=== PATIENT | female | born 1975 | race Caucasian/White ===

== ENCOUNTER 2016-12-16 20:49 | Inpatient (IN) | payer OTHER ==
[2016-12-16 21:24] LABS: MANUAL DIFF NEEDED? NO
[2016-12-16 21:28] LABS: BASO% 0.2 % (0.0-0.8); EOS# 0.21 X1000 (0.0-0.7); EOS% 2.6 % (0.0-10.0); HEMATOCRIT 34.9 % (37.0-47.0); HEMOGLOBIN 11.9 g/dL (12.0-16.0); IMM GRAN# 0.02 X1000 (0.0-0.04); IMM GRAN% 0.2 % (0.0-0.5); LYMPH% 26.7 % (20.5-51.1); MCH 29.7 PG (27-31); MCHC 34.1 g/dL (33-37); MONO# 0.99 X1000 (0.11-0.59); MPV 8.6 FL (7.4-10.4); NEUT% 58.3 % (42.2-75.2); PLT 290 X1000 (130-400); RBC 4.01 XMIL (4.2-5.4)
--- NOTE | 2016-12-16 21:40 | ED EKG INTERP ---
EKG Interpretation - EKG Time of EKG reading by physician:: 21:23 EKG Read and Signed by:: Smooth Del Real EKG Interpretation (*Must complete 3 of following elements*): Normal Rate: 92 Rhythm: NSR Comments: Normal ECG Attestation - Scribe Verification/Attestation Scribe:: Veena Marin Acting as Scribe for:: Smooth Del Real Scribe documention review:: This chart was documented by a scribe and accurately reflects the service the provider performed and the decisions made by the provider.
[2016-12-16 21:49] LABS: AGAP 12; ALBUMIN 3.2 g/dL (3.5-5.0); ALKALINE PHOSPHATASE 197 U/L (32-104); BUN 16 mg/dL (8-22); CALCIUM 8.7 mg/dL (8.8-10.2); CHLORIDE 101 mmol/L (98-107); COSMO 275; GOT 23 U/L (10-30); GPT 23 U/L (10-36); POTASSIUM 3.7 mmol/L (3.5-5.1); SODIUM 137 mmol/L (136-145); TCO2 24 mmol/L (25-35); TOTAL BILIRUBIN 0.14 mg/dL (0.20-1.00); TOTAL PROTEIN 6.9 g/dL (6.3-8.3)
[2016-12-16] MEDS ORDERED: VANCOMYCIN 1 GM/NS 250 ML IV ONE (22:00)
--- NOTE | 2016-12-16 22:05 | PROVIDER DOCUMENTATION ---
Addendum entered and electronically signed by Veena Marin Scribe 12/17/16 02:53: Additional Progress - ADDITIONAL CT/MRI CT Study #3: Thorax Impression: Abnormal CT Results: Fluid effusion Original Note: HPI-Respiratory General - General Chief Complaint: Shortness of Breath Stated Complaint: cough, pneumonia Time Seen by Provider: 12/16/16 20:50 Source: patient, EMS Allergies/Adverse Reactions: Patient Allergies Allergy/AdvReac Type Severity Reaction Status Date / Time acetaminophen Allergy ITCHING Verified 12/16/16 21:31 [From Darvocet-N 100] morphine Allergy RASH Verified 12/16/16 21:31 propoxyphene napsylate * Allergy ITCHING Verified 12/16/16 21:31 [From Darvocet-N 100] Cephalosporins AdvReac HIVES Verified 12/16/16 21:31 nalbuphine HCl * AdvReac ITCHING Verified 12/16/16 21:31 [From Nubain] Home Medications: Home Medication List Medication Instructions Recorded Confirmed Last Taken Type Sertraline HCl [Zoloft] 200 mg PO BID 01/10/14 12/16/16 12/16/16 21:00 History Oxcarbazepine [Trileptal] 300 mg PO TID 04/29/16 12/16/16 12/16/16 20:00 History Oxybutynin [Ditropan] 5 mg PO TID 04/29/16 12/16/16 09/09/16 History Phenytoin [Dilantin] 100 mg PO TID 04/29/16 12/16/16 12/16/16 20:00 History Acetaminophen [Tylenol] 650 mg PO Q4H PRN PRN #0 tablet 09/19/16 Unknown Rx Alprazolam [Xanax] 0.25 mg PO TID #90 tablet 09/19/16 12/16/16 12/16/16 20:00 Rx Baclofen [Lioresal] 20 mg PO TID #90 tablet 09/19/16 12/16/16 12/16/16 20:00 Rx Guar Gum [Benefiber Packet] 1 each PO DAILY #0 packet 09/19/16 12/16/16 07:00 Rx Hydrocodone/APAP 5 mg/325 mg 1 each PO TID #90 tablet 09/19/16 12/16/16 20:00 Rx [[place]-5] Lactobacillus Rhamnosus GG 1 each PO BID #0 capsule 09/19/16 12/16/16 12/16/16 20:00 Rx [Culturelle] Nicotine Patch [Nicoderm Patch] 7 mg TD DAILY #0 patch.td24 09/19/16 12/16/16 Unknown Rx Acidophilus/Bulgaricus [Floranex 1 tab PO BID 12/16/16 12/16/16 12/16/16 20:00 History Tablet Chewable] Arginine/Glutamine/Calcium Hmb 1 each PO DIRECTED 12/16/16 12/16/16 Unknown History [Wilbur Packet] Aspirin 81 mg PO DAILY 12/16/16 12/16/16 12/16/16 07:00 History Docusate Sodium [Colace] 100 mg PO BID 12/16/16 12/16/16 12/16/16 20:00 History Pantoprazole Sodium [Protonix] 40 mg PO DAILY 12/16/16 12/16/16 12/16/16 07:00 History Polyethylene Glycol 3350 17 gm PO QHS 12/16/16 12/16/16 12/16/16 20:00 History Protein Supplement [Promod] 30 ml PO BID 12/16/16 12/16/16 12/16/16 20:00 History Trazodone [Desyrel] 50 mg PO QHS 12/16/16 12/16/16 12/16/16 20:00 History - History of Present Illness-Resp Nature of Presenting Problem: This pt, who has a hx of spina bifida and lives in a senior living, presents today c complaints of failed outpt tx of pneumonia. She has been taking levaquin daily for the past week for pneumonia. This morning she had a CXR which showed worsening R lower lobe pneumonia and they sent her here for inpatient tx. she is a pt of Dr. Maurice. At present she is no apparent distress but states that she feels unwell. Quality of Pain: reports: aching Severity in ED: reports: mild Onset/Duration: reports: 1 week ago Timing: reports: still present Cough Quality/Degree: reports: mild, dry cough Modifying Factors: improves with: coughing Associated Symptoms: reports: cough, fever/chills Similar Symptoms Previously?: Yes Recently seen or treated by another doctor?: Yes Review of Systems - Adult - REVIEW OF SYSTEMS - ADULT Constitutional: reports: silvio. denies: chills, fever Eyes: reports: no symptoms reported. denies: discharge, dry eyes Ears, Nose, Mouth & Throat: reports: no symptoms reported. denies: ear discharge, ear pain Cardiovascular: reports: no symptoms reported. denies: chest pain, edema Respiratory: reports: see HPI, cough. denies: chronic cough, hemoptysis, pleurisy Gastrointestinal: reports: no symptoms reported. denies: abdominal pain, hematemesis Genitourinary: reports: no symptoms reported. denies: discharge, frequency Musculoskeletal: reports: see HPI. denies: bone pain, back pain Integumentary: reports: no symptoms reported. denies: hives, hair loss Neurological: reports: no symptoms reported. denies: ataxia, dizziness/vertigo Psychiatric: reports: no symptoms reported. denies: anxiety, anti-depressant use Endocrine: reports: no symptoms reported Hematologic/Lymphatic: reports: no symptoms reported Allergic/Immunologic: reports: no symptoms reported All Other Systems: Reviewed and Negative Past History - Adult - PAST MEDICAL HISTORY-ADULT Review of Records: reports: Old Records Reviewed, Nursing Assessment Review, Medications Reviewed, Social history reviewed & non-contributory. Major Childhood Illnesses: reports: denies history Cardiovascular: reports: denies history Respiratory: reports: denies history Gastrointestinal: reports: denies history Obstetrical/Gynecological: reports: denies history Genitourinary: reports: chronic UTI's Musculoskeletal: reports: denies history Neurological: reports: other (spina bifida; hydrocephalus) Endocrine/Immune: reports: denies history Other Conditions: reports: denies history - PRIOR SURGERIES/PROCEDURES Surgical/Procedure History: reports: none - IMMUNIZATION STATUS Childhood Immunizations: See Nurse Assessment Flu Vaccine: See Nurse Assessment - FAMILY HISTORY Family History: reviewed, not pertinent Physical Exam-General - PHYSICAL EXAM-ADULT Initial Vital Signs Reviewed: Yes - CONSTITUTIONAL General Appearance: appears well, alert, no apparent distress - EYES Eyes: PERRL/EOMI, pink conjunctivae - HEAD, EARS, NOSE, MOUTH & THROAT HENMT: normocephalic/atraumatic, moist mucous membranes - NECK Neck: non-tender, full range of motion - RESPIRATORY Respiratory: chest non-tender, no pleuratic chest pain, no respiratory distress , no accessory muscle use, crackles (RLL). negative: respiratory distress, decreased breath sounds, accessory muscle use, rales, rhonchi, stridor, wheezing - CARDIOVASCULAR Cardiovascular: normal peripheral pulses, regular rate, rhythm - GASTROINTESTINAL (ABDOMEN) Abdominal Exam: normal bowel sounds, non tender - MUSCULOSKELETAL Back Exam: other (severe deformity from spina bifida) Extremity: normal range of motion - SKIN Integumentary: normal color, normal turgor, warm/dry. negative: cyanosis, pallor - NEUROLOGIC Neurologic: grossly normal, no motor/sensory deficits - PSYCHIATRIC Psych/Mental Status: normal mood/affect, normal thought content, normal thought process, oriented x 3 Progress - PLAN OF CARE/RESULTS Progress/Plan/Lab Results: Laboratory Tests 12/16/16 12/16/16 12/16/16 21:11 21:11 21:11 WBC 8.23 RBC 4.01 L Hgb 11.9 L Hct 34.9 L MCV 87.0 MCH 29.7 MCHC 34.1 RDW Std Deviation 12.9 Plt Count 290 MPV 8.6 Immature Gran % (Auto) 0.2 Neut % (Auto) 58.3 Lymph % (Auto) 26.7 [place] % (Auto) 12.0 H Eos % (Auto) 2.6 Baso % (Auto) 0.2 Immature Gran # (Auto) 0.02 Neut # (Auto) 4.79 Lymph # (Auto) 2.20 [place] # (Auto) 0.99 H Eos # (Auto) 0.21 Baso # (Auto) 0.02 Sodium 137 Potassium 3.7 Chloride 101 Carbon Dioxide 24 L Anion Gap 12 BUN 16 Creatinine 0.3 L Estimated GFR/1.73 m2 > 60 BUN/Creatinine Ratio 53 Glucose 101 Calculated Osmolality 275 Calcium 8.7 L Total Bilirubin 0.14 L AST 23 ALT 23 Alkaline Phosphatase 197 H Total Protein 6.9 Albumin 3.2 L Globulin 3.7 Albumin/Globulin Ratio 0.9 Plasma Lactate 1.4 Orders Category Date Time Status Saline Loc NOW Care 12/16/16 20:50 Active CHEST-PORTABLE [RAD] Stat Exams 12/16/16 20:50 Taken BLOOD CULTURE [BLDCUL] Stat Lab 12/16/16 21:13 Results CBC WITH ELECTRONIC DIFF [HEME] Stat Lab 12/16/16 21:11 Completed COMPREHENSIVE METABOLIC PANEL [CHEM] Stat Lab 12/16/16 21:11 Completed LACTATE, PLASMA [CHEM] Stat Lab 12/16/16 21:11 Completed Vancomycin 1 gm/Ns 250 ml Med 12/16/16 22:00 Active IV NOW EKG [EKG] Stat Ther 12/16/16 20:50 Ordered Vital Signs Temp Pulse Resp BP Pulse Ox 12/16/16 20:59 98.2 F 88 19 115/89 97 acetaminophen [From Darvocet-N 100] Allergy (Verified 12/16/16 21:31) ITCHING morphine Allergy (Verified 12/16/16 21:31) RASH propoxyphene napsylate * [From Darvocet-N 100] Allergy (Verified 12/16/16 21:31) ITCHING Cephalosporins Adverse Reaction (Verified 12/16/16 21:31) HIVES nalbuphine HCl * [From Nubain] Adverse Reaction (Verified 12/16/16 21:31) ITCHING Sertraline HCl [Zoloft] 200 mg PO BID 01/10/14 Oxcarbazepine [Trileptal] 300 mg PO TID 04/29/16 Oxybutynin [Ditropan] 5 mg PO TID 04/29/16 Phenytoin [Dilantin] 100 mg PO TID 04/29/16 Acetaminophen [Tylenol] 650 mg PO Q4H PRN PRN #0 tablet 09/19/16 Alprazolam [Xanax] 0.25 mg PO TID #90 tablet 09/19/16 Baclofen [Lioresal] 20 mg PO TID #90 tablet 09/19/16 Guar Gum [Benefiber Packet] 1 each PO DAILY #0 packet 09/19/16 Hydrocodone/APAP 5 mg/325 mg [[place]-5] 1 each PO TID #90 tablet 09/19/16 Lactobacillus Rhamnosus GG [Culturelle] 1 each PO BID #0 capsule 09/19/16 Nicotine Patch [Nicoderm Patch] 7 mg TD DAILY #0 patch.td24 09/19/16 Acidophilus/Bulgaricus [Floranex Tablet Chewable] 1 tab PO BID 12/16/16 Arginine/Glutamine/Calcium Hmb [Wilbur Packet] 1 each PO DIRECTED 12/16/16 Aspirin 81 mg PO DAILY 12/16/16 Docusate Sodium [Colace] 100 mg PO BID 12/16/16 Pantoprazole Sodium [Protonix] 40 mg PO DAILY 12/16/16 Polyethylene Glycol 3350 17 gm PO QHS 12/16/16 Protein Supplement [Promod] 30 ml PO BID 12/16/16 Trazodone [Desyrel] 50 mg PO QHS 12/16/16 Laboratory 12/16/16 12/16/16 12/16/16 21:11 21:11 21:11 WBC 8.23 RBC 4.01 L Hgb 11.9 L Hct 34.9 L MCV 87.0 MCH 29.7 MCHC 34.1 RDW Std Deviation 12.9 Plt Count 290 MPV 8.6 Immature Gran % (Auto) 0.2 Neut % (Auto) 58.3 Lymph % (Auto) 26.7 [place] % (Auto) 12.0 H Eos % (Auto) 2.6 Baso % (Auto) 0.2 Immature Gran # (Auto) 0.02 Neut # (Auto) 4.79 Lymph # (Auto) 2.20 [place] # (Auto) 0.99 H Eos # (Auto) 0.21 Baso # (Auto) 0.02 Sodium 137 Potassium 3.7 Chloride 101 Carbon Dioxide 24 L Anion Gap 12 BUN 16 Creatinine 0.3 L Estimated GFR/1.73 m2 > 60 BUN/Creatinine Ratio 53 Glucose 101 Calculated Osmolality 275 Calcium 8.7 L Total Bilirubin 0.14 L AST 23 ALT 23 Alkaline Phosphatase 197 H Total Protein 6.9 Albumin 3.2 L Globulin 3.7 Albumin/Globulin Ratio 0.9 Plasma Lactate 1.4 - XRAY 1 XRAY Study: Chest XRAY Interpretation: RLL pneumonia vs effusion (myself and dr. diaz) - CONSULTS/PCP/HOSPITALIST Notification #1 *Consult/PCP/Hospitalist*: Dr. Diaz Time Discussed: 22:20 Consult Disposition: Admit Departure - Departure Time of Disposition Order: 22:05 DIAGNOSIS: Failure of outpatient treatment Pneumonia Qualifiers: Pneumonia type: due to unspecified organism Laterality: right Lung location: lower lobe of lung Qualified Code(s): J18.1 - Lobar pneumonia, unspecified organism Disposition: ADMITTED INPATIENT 09 Certified Medical Emergency: Emergent Condition: Stable Referrals: Travis Truong MD [Primary Care Provider] - Attestation - Physician/ L[place]ET[place] Attestation Patient care was provided by Advanced Practice Provider:: Yes Advanced Practice Provider:: Jigar Licea Advanced Practice Provider documentation review:: The Mid-level provider documentation, treatment plan and medical decision making was reviewed by the physician who agrees with all treatment and medical decision making by the MLP. The physician spent face to face time with patient:: Yes
[2016-12-16] MEDS ORDERED: NORCO-7.5 PO ONE (23:46)
[2016-12-16] MEDS ORDERED: ZOFRAN ODT PO ONE (23:46)
[2016-12-17] MEDS ORDERED: DILAUDID IV ONE (00:09)
[2016-12-17] MEDS: ZOSYN 3.375 GM/NS 50 ML IV SCH ×4 (02:15→17:10)
[2016-12-17 03:03] LABS: INR 1.01; PROTIME 10.7 Seconds (9.2-11.7)
[2016-12-17] MEDS ORDERED: NS 1,000 ML IV ONE (03:54)
[2016-12-17] MEDS ORDERED: DUONEB (A & A) INH SCH (03:54)
[2016-12-17] MEDS ORDERED: TYLENOL PO PRN (03:54)
[2016-12-17] MEDS ORDERED: NORCO-5 PO PRN (03:54)
[2016-12-17] MEDS ORDERED: PATIENT'S OWN MED PO SCH ×2 (03:54→09:00)
[2016-12-17] MEDS ORDERED: VANCOMYCIN IV PER PHARMACY MISC SCH (03:54)
[2016-12-17] MEDS ORDERED: DUONEB (A & A) INH PRN (04:09)
[2016-12-17] MEDS: TESSALON PO PRN (04:31)
[2016-12-17] MEDS ORDERED: VANCOMYCIN 500 MG/NS 100 ML IV ONE (04:45)
[2016-12-17] MEDS ORDERED: LIORESAL PO SCH (05:00)
[2016-12-17] MEDS ORDERED: DILANTIN PO SCH (05:00)
[2016-12-17] MEDS ORDERED: DITROPAN PO SCH (05:00)
[2016-12-17] MEDS ORDERED: TRILEPTAL PO SCH ×2 (05:00→09:00)
--- NOTE | 2016-12-17 05:17 | EKG Report ---
Test Performed on : 12/16/2016 9:23:14 PM Test Reason : SOB Blood Pressure : / mmHG Vent. Rate : 092 BPM Atrial Rate : 092 BPM P-R Int : 118 ms QRS Dur : 088 ms QT Int : 362 ms P-R-T Axes : 014 026 017 degrees QTc Int : 447 ms Normal sinus rhythm. Normal ECG When compared with ECG of 10-SEP-2016 16:22, ST no longer depressed in Anterior leads Nonspecific T wave abnormality, improved in Inferior leads T wave inversion no longer evident in Anterolateral leads Unconfirmed Result
--- NOTE | 2016-12-17 06:23 | Diag Imaging Result Document ---
PROCEDURE NAME: CT THORAX W/CONTRAST - 12/17/2016 CT CHEST WITH INTRAVENOUS CONTRAST: TECHNIQUE: Dose-reduction protocol. FINDINGS: There is [id number] right-sided pleural effusion measuring 7 cm posteriorly and inferiorly in the midline. Mild enhancement or thickening to the inferior pleural surface on the right. No left-sided effusion. No thoracic aortic aneurysm or dissection. No cardiomegaly. No enlarged mediastinal or hilar lymph nodes. There is a calcified left hilar lymph node with a calcified left lower lobe granuloma. Atelectasis is found in the right middle and lower lobes. There may be small underlying infiltrate in the right lower lobe. There is a catheter on the right which may represent a ventriculoperitoneal shunt. The patient has scoliosis and there are rods in the thoracic and lumbar spine. Prominent stool in the colon on the limited images of the upper abdomen. The gallbladder has been removed. IMPRESSION: 1. [id number] right pleural effusion. 2. Right middle and lower lobe atelectasis. 3. Constipation. 4. Cholecystectomy. A preliminary report was given at 3:01 a.m.
[2016-12-17 07:28] LABS: MANUAL DIFF NEEDED? NO
[2016-12-17 07:44] LABS: BASO% 0.3 % (0.0-0.8); EOS# 0.19 X1000 (0.0-0.7); EOS% 2.7 % (0.0-10.0); HEMATOCRIT 33.9 % (37.0-47.0); HEMOGLOBIN 11.4 g/dL (12.0-16.0); LYMPH# 1.55 X1000 (1.2-3.4); LYMPH% 22.3 % (20.5-51.1); MCH 29.8 PG (27-31); MCHC 33.6 g/dL (33-37); MCV 88.5 FL (81-99); MONO# 0.97 X1000 (0.11-0.59); MONO% 13.9 % (1.7-9.3); MPV 8.6 FL (7.4-10.4); NEUT% 60.8 % (42.2-75.2); PLT 254 X1000 (130-400); RBC 3.83 XMIL (4.2-5.4)
[2016-12-17 08:08] LABS: AGAP 11; BUN 11 mg/dL (8-22); CALCIUM 8.7 mg/dL (8.8-10.2); CHLORIDE 101 mmol/L (98-107); COSMO 274; POTASSIUM 4.6 mmol/L (3.5-5.1); SODIUM 138 mmol/L (136-145); TCO2 26 mmol/L (25-35)
--- NOTE | 2016-12-17 08:12 | Diag Imaging Result Document ---
PROCEDURE NAME: CHEST-PORTABLE - 12/16/2016 PORTABLE CHEST X-RAY, 12/16/20160: COMPARISON: 09/10/2016. FINDINGS: Stable extensive fusion rods. Stable catheter tubing along the body wall. Lung volumes are improved but still critically low. There is a small to moderate right pleural effusion. No new infiltrates. IMPRESSION: Slightly greater lung volumes but otherwise no change from prior.
--- NOTE | 2016-12-17 08:44 | CONSULTATION ---
DATE OF CONSULTATION: 12/17/2016 CHIEF COMPLAINT: Shortness of breath. HISTORY OF PRESENT ILLNESS: This is a 41-year-old female with a past medical history of spina bifida, recurrent UTIs, tobacco abuse, and seizure disorder that presented to the hospital with complaints of shortness of breath. Apparently, the patient was recently treated with Levaquin for community-acquired pneumonia and has not had an improvement in symptoms. Diagnostics in the emergency room reveal a moderate to large right pleural effusion and right middle and lower lobe atelectasis. The patient denies any chest pain, abdominal pain, nausea, vomiting, or diarrhea. She has been admitted to the floor for further evaluation, management, and treatment. REVIEW OF SYSTEMS: A 10 point review of systems was conducted. Pertinents are in the HPI, otherwise noncontributory. PAST MEDICAL HISTORY: As mentioned in the HPI, otherwise noncontributory. PAST SURGICAL HISTORY: Multiple back surgeries.METAL MOULDER shunt for hydrocephalus ALLERGIES: Morphine, Darvocet, cephalosporins, and Nubain. FAMILY HISTORY: Noncontributory. SOCIAL HISTORY: The patient lives at home alone. Uses tobacco daily. Denies the use of alcohol or illicit drugs. PHYSICAL EXAMINATION: Vital Signs: Temperature 98.4, blood pressure 109/62, heart rate 79, respiratory rate 21, oxygen saturation 99%. General: Awake, alert. No acute distress noted. HEENT: Normocephalic and atraumatic. PERRL. Poor dentition. Cardiovascular: Regular rate and rhythm. S1 and S2 present. Chest: Reduced entry. Abdomen: Bowel sounds are present. Extremities: No edema noted. Neurologic: Alert and oriented x3. No focal deficits. LABS: WBC 8.23, RBCs 4.01, hemoglobin 11.9, hematocrit 34.9, platelet count 290 ,000. Sodium 137, potassium 3.7, chloride 101, carbon dioxide 24, anion gap 12, BUN 16, creatinine 0.3, glucose 101. Chest CT performed on 12/17/2016 shows moderate to large right pleural effusion , right middle and lower lobe atelectasis, constipation, and cholecystectomy. ASSESSMENT AND PLAN: This is a 41-year-old, female with a past medical history as mentioned in the history of present illness who presented to the hospital with complaints of shortness of breath. She was admitted for failed outpatient treatment of pneumonia and development of pleural effusion. She will likely require an interventional radiology guided thoracentesis, but that was reconsidered given the history of shunt placement. See US report. Also, continue inhaled bronchodilators, intravenous antibiotics , and gastrointestinal prophylaxis. Further recommendations pending diagnostic studies. Thank for the courtesy of this consult. Dictated by ELLEN Nj for Mady Bacon MD [facility]
[2016-12-17] MEDS ORDERED: CULTURELLE PO SCH (09:00)
--- NOTE | 2016-12-17 09:08 | HISTORY AND PHYSICAL ---
PRIMARY CARE PROVIDER: Travis Truong MD. CHIEF COMPLAINT: Shortness of breath. HISTORY OF PRESENT ILLNESS: Ms. Walden is a 41-year-old female with a past medical history of spina bifida. Due to this, the patient is a paraplegic. The patient also does have a suprapubic urinary catheter with a history of frequent urinary tract infections. She was most recently admitted to the hospital in September 2106 for a left ischial decubitus ulcer and underwent debridement with Dr. Nicola Kathleen. Since being discharged from the hospital for this, the patient has been at rehab receiving wound care and currently is receiving wound VAC therapy for treatment of her ulcer. The patient has recently been treated for a urinary tract infection with Levaquin. Shortly after diagnosis of her UTI, she was found to have a right-sided pneumonia at rehab. They continued her Levaquin for treatment of her pneumonia, as well, though the patient has continued to have worsening shortness of breath as well as nonproductive wet cough. The patient did report some fever and chills, as well. Upon evaluation in the ER, the patient was found to have a right-sided pleural effusion and pneumonia. Blood cultures have been obtained, and a dose of vancomycin has already been administered. The patient denies any dizziness, headache, chest pain, abdominal pain, nausea, vomiting, or diarrhea. The patient does report that she has frequent problems with constipation and takes daily medications for this. She reports that she has not had diarrhea, though that her stools have been more soft than usual. She denies any bloody or black stools. The patient denies any pain in extremities. She does have sensation in her lower extremities from approximately hip to mid upper thigh, though she reports that this is decreased sensation in this area. The patient does report some pain on her left hip and buttock area where she does have her decubitus ulcer. At this time, we will admit the patient for further treatment and evaluation of her right pleural effusion and pneumonia. She is Dr. Truong's patient, so we will place an order for them to notify Dr. Truong on the morning of her admission. REVIEW OF SYSTEMS: A 14-point review of systems was conducted with the patient and all were negative except for pertinent positives mentioned in the above HPI. PAST MEDICAL HISTORY: 1. Spina bifida with chronic paraplegia. 2 Frequent urinary tract infections with placement of suprapubic urinary catheter. 3. Recent debridement of a left ischial decubitus ulcer. 4. Multiple traumatic fractures. 5. Seizure disorder. 6. Multiple back surgeries. PAST SURGICAL HISTORY: The patient has had several surgeries: 1. Cholecystectomy. 2. Multiple breast lumps removed which were all benign. 3. Ventricular shunt placement for hydrocephalus. 4. Numerous back surgeries for placement of darlin and spinal fusions. 5. Hip surgeries. 6. Right ankle surgery. SOCIAL HISTORY: The patient is a former smoker. She quit smoking approximately 2 months ago. She reported that she used to smoke just occasionally though has been a 1 pack per day smoker since 2002 until she quit just recently. She denies any alcohol or illicit drug use. The patient does live alone though has home help that comes out and sees her every 2 weeks, and she has a bath aide that comes out once a week, and does have a day care teacher who helps perform her housekeeping as well as her grocery shopping and some cooking, as well. The patient is wheelchair bound due to her spina bifida and paraplegia and was just recently discharged from the hospital in September and has been in rehab since this time. FAMILY HISTORY: Positive for seizures in her mother secondary to head trauma. Her father at the age of 26 due to a motor vehicle crash, though she reports that had had some vision problems, and she has a half-sister who has a history of prediabetes. ALLERGIES: The patient reports allergies to Darvocet, morphine, cephalosporins, and Nubain. HOME MEDICATIONS: 1. Floranex tablet one tablet p.o. b.i.d. 2. Xanax 0.25 mg p.o. t.i.d. 3. Wilbur packet, one p.o. as directed. 4. Aspirin 81 mg p.o. daily. 5. Baclofen 20 mg p.o. t.i.d. 6. Colace 100 mg p.o. b.i.d. 7. Benefiber packet one p.o. daily. 8. [place] 5 mg one p.o. t.i.d. 9. Culturelle one p.o. b.i.d. 10. Trileptal 300 mg p.o. t.i.d. 11. Ditropan 5 mg p.o. t.i.d. 12. Protonix 40 mg p.o. daily. 13. Dilantin 100 mg p.o. t.i.d. 14. Polyethylene glycol 3350, 17 g p.o. at bedtime. 15. ProMod 30 mL p.o. b.i.d. 16. Zoloft 200 mg once p.o. daily in the morning. 17. Desyrel 50 mg p.o. at bedtime. DIAGNOSTIC DATA/LABORATORY RESULTS: White blood cell count 8.2, hemoglobin 11.9, hematocrit 34.9, platelet count 290. PT 10.7, INR 1.01, sodium 137, potassium 3.7, chloride 101, bicarb 24, BUN 16, creatinine 0.3, GFR greater than 60, glucose 101, calcium 8.7. Total bilirubin 0.14, AST 23, ALT 23, alkaline phosphatase 197. Plasma lactate 1.4. Dilantin level is 5.70. EKG: EKG showed normal sinus rhythm at a rate of 92, QTc was 447. IMAGING: Chest x-ray showed a right pleural effusion with possible pneumonia that we are awaiting the official Radiology overread. PENDING DIAGNOSTIC STUDIES: At this time are a PTT, blood cultures, sputum culture, urinalysis, as well as a CT thorax with contrast. PHYSICAL EXAMINATION: VITAL SIGNS: Temperature 98.3, heart rate 84, respirations 21, blood pressure 120/68, oxygen saturation is 96% on room air. GENERAL: Ms. Walden is a pleasant 41-year-old female who is resting in the ER stretcher in no acute distress. She was awake, alert, and able to answer all questions appropriately. HEENT: Head is atraumatic, normocephalic. Pupils were equal, round, reactive to light, were 3 mm bilaterally. Oral mucosa is moist. Oropharynx is clear. NECK: Supple, trachea midline. CARDIOVASCULAR: The patient has normal S1, S2, no murmurs, gallops, or rubs. She has a regular rate and rhythm. PULMONARY: The patient has symmetrical chest expansion bilaterally. Lung sounds in the upper lung rodríguez are clear. There were slight crackles noted in left lung base and lung sounds in right lower lobe were slightly diminished. ABDOMEN: Soft, nontender, nondistended, though the patient does have a slightly protuberant abdomen noted. Bowel sounds were present in all 4 quadrants, were normoactive. GENITOURINARY: The patient does have a suprapubic catheter noted. She has clear yellow urine noted to drainage Bay bag. EXTREMITIES: The patient is a paraplegic secondary to spina bifida. Bilateral lower extremities do have atrophy and changes noted that are related to her spina bifida, as well, though pedal pulses in bilateral lower extremities were 3+. Pulse, motor, and sensory are intact in bilateral upper extremities. Bilateral radial pulses were 3+, as well. INTEGUMENTARY: The patient's skin is pink, warm, dry, and intact, except for the patient does have a left ischial decubitus ulcer noted. There is packing present in the wound, though there does not appear to be any obvious drainage noted at this time, though her ulcer does appear to be tunneled. NEUROLOGICAL: The patient is alert and oriented x3. The patient does have paraplegia though does report some slight sensation in bilateral upper thighs from approximately mid thigh to her hip, though no other neurological deficits noted at this time. ASSESSMENT AND PLAN: 1. Right pleural effusion and pneumonia. The patient has been being treated outpatient for her pneumonia at rehab with Levaquin, so we will place her on vancomycin and Zosyn. The patient does have an allergy to cephalosporins though has received Zosyn in the past with no noted adverse reaction. Blood cultures have been obtained. We have placed an order for a sputum culture. Will continue with aggressive pulmonary toilet. We have placed a consult with Dr. Bacon for further evaluation and recommendations of her right pleural effusion. We are awaiting the results of the CT thorax with contrast for further evaluation of her effusion, as well, and will wait for these results and continue to follow. 2. Left ischial decubitus ulcer. The patient has been receiving wound VAC therapy for treatment of this. We have consulted Dr. Kathleen who did perform the patient's debridement as well as a consult with the wound care nurse and will await their evaluation for further management of this. 3. Suprapubic catheter with a history of frequent urinary tract infections. The patient did report that she was just recently being treated at rehab for a urinary tract infection, so we have placed an order for a urinalysis to be performed and are awaiting this at this time and will continue to follow. 4. Seizures. Will continue the patient's medicine of Dilantin and Trileptal. 5. DVT prophylaxis will be provided with SCDs at this time. 6. GI prophylaxis will be provided with 40 mg of Protonix daily from her home medications. 7. Chronic pain. The patient usually receives this three times a day, though she is reporting some increased pain from her decubitus ulcer, so we have increased this to q.6 h. p.r.n. as needed. The patient will be placed on the medical floor with telemetry. She will have vital signs q.6 h. We will repeat a CBC, BMP in the morning. She will be placed on a regular diet. We have also placed a consult with Case Management and Wheat Washer given that the patient may need placement for rehab upon discharge. Further orders and recommendations pending hospital course, diagnostic studies, and physician evaluation. Dictated by ELLEN Major for Remi Diaz MD
--- NOTE | 2016-12-17 10:57 | CONSULTATION ---
DATE OF CONSULTATION: 12/17/2016 HISTORY OF PRESENT ILLNESS: This is a 41-year-old female with multiple medical issues including immobility related to spina bifida. She has had a chronic decubitus ulcer in the left leg, which we debrided several months ago and treated with a wound VAC. She has been in the assisted since. She developed cough, shortness of breath. She was treated with outpatient antibiotics with no improvement. She presents now for management of the right parapneumonic pleural effusion. I have been consulted for management of her decubitus ulcer. States no pain, no real drainage with fevers outside of this recent pneumonia, and the wound has been decreasing in size with wound VAC therapy at home. PAST MEDICAL HISTORY: 1. Spina bifida. 2. Recurrent UTIs. 3. Tobacco abuse. 4. Seizure disorder. PAST SURGICAL HISTORY: 1. She had a [employer] shunt. 2. She had multiple spinal procedures. 3. Debridement of left decubitus ulcer. FAMILY HISTORY: Noncontributory. SOCIAL HISTORY: She lives at a assisted. She does have family around. Uses tobacco daily and no alcohol. PHYSICAL EXAMINATION: Vital Signs: Temperature is 98.4 degrees, pulse 79, blood pressure 109/62, oxygen saturation 99% on room air. General: She is alert, in no acute distress. HEENT: No scleral icterus. Cardiovascular: Normal rate and rhythm. Pulmonary: No increased work of breathing. Her left ischial decubitus ulcer is granulating well. It is much smaller than previous. I see no necrotic tissue. No evidence of cellulitis here, although it is tender and is quite macerated from this chronic pressure. LABS: White count 6, hematocrit 33, platelets are 254. Creatinine 0.3. INR is 1.1. ASSESSMENT/PLAN: A 41-year-old female with multiple medical issues admitted now with pneumonia and a right pleural effusion. She also appears to have ventriculoperitoneal shunt on the right as well. As far as her decubitus ulcer, this is granulating well. I think if we maintain low pressure to this area, it will continue to heal. I have put in a consult for Maria Eugenia Mora, our wound nurse, to replace her wound VAC while here and will continue this and will change this 3 times weekly. I do not see need for further debridement at this time.
[2016-12-17 12:02] LABS: URINE MICRO REVIEW NEEDED? NO; URINE SOURCE CATH
--- NOTE | 2016-12-17 12:05 | PROGRESS NOTE ---
DATE: 12/17/2016 The patient was admitted overnight by the Hospitalist Service with the diagnosis of pneumonia. She has been institutionalized since 09/03/2016 with a 21-day stay at high intensity rehab in [place] and then transferred to [facility] where she has lived since then. She continues to get wound care but has developed pneumonia which did not respond to p.o. Levaquin. She was transferred here some time yesterday unbeknownst to me and then admitted overnight by the Hospitalist Service. Although a note is not required today, I have reviewed the patient's laboratories, her orders and the history with her. I agree with the consultations that have been made and the selection of antibiotics. I have changed her pain medication from hydrocodone to something that is codeine based to hopefully help suppress her cough a little bit better. The only question that really remains beyond the treatment provided thus far is whether there needs to be any type of intervention for her pleural effusion. We will continue to follow this by x-ray and consult Radiology if necessary.
[2016-12-17 12:08] LABS: BILIRUBIN URINE NEGATIVE (NEGATIVE); BLOOD URINE NEGATIVE (NEGATIVE); COLOR YELLOW; GLUCOSE URINE NEGATIVE (NEGATIVE); LEUKOCYTES URINE MODERATE (NEGATIVE); NITRITE URINE POSITIVE (NEGATIVE); PH URINE 7.5; PROTEIN URINE NEGATIVE (NEGATIVE); TURBIDITY URINE HAZY (CLEAR); UROBILINOGEN URINE NORMAL (NORMAL)
[2016-12-17 12:09] LABS: UR EPITHELIAL CELLS <10 /HPF (<10); URINE BACTERIA 4+ /HPF; URINE CULTURE NEEDED? YES; URINE RBC <10 /HPF (<10); URINE WBC <10 /HPF (<10)
--- NOTE | 2016-12-17 13:07 | Diag Imaging Result Document ---
PROCEDURE NAME: US CHEST W/O MEDIASTINUM(LTD) - 12/17/2016 ULTRASOUND RIGHT CHEST, 12/17/2016: COMPARISON: Prior chest x-rays from 12/16/2016 and 09/10/2016. FINDINGS: There is a moderate simple fluid pleural effusion on the right. There is an echogenicity within this compatible with the patient's shunt. This is stable from prior chest x- rays including 09/10/2016. IMPRESSION: Simple right pleural effusion from the patient's ventriculopleural shunt. Given this physiologic finding, aspiration was deferred.
[2016-12-17] MEDS: ASPIRIN PO SCH (13:59)
[2016-12-17] MEDS: DILANTIN PO SCH ×3 (13:59→17:31)
[2016-12-17] MEDS: BENEFIBER PACKET PO SCH (13:59)
[2016-12-17] MEDS: COLACE PO SCH ×2 (13:59→21:30)
[2016-12-17] MEDS: FLAGYL PO SCH ×2 (14:00→21:37)
[2016-12-17] MEDS: CULTURELLE PO SCH ×2 (14:00→21:37)
[2016-12-17] MEDS: DITROPAN PO SCH ×3 (14:00→17:32)
[2016-12-17] MEDS: TRILEPTAL PO SCH ×3 (14:01→17:32)
[2016-12-17] MEDS: PROTONIX PO SCH (14:01)
[2016-12-17] MEDS: LIORESAL PO SCH ×4 (14:01→21:43)
[2016-12-17] MEDS: ZOLOFT PO SCH (14:07)
[2016-12-17] MEDS: TYLENOL WITH CODEINE #3 PO SCH ×3 (16:46→21:37)
[2016-12-17] MEDS: MIRALAX PO SCH (21:36)
[2016-12-17] MEDS: DESYREL PO SCH (21:37)
[2016-12-17] MEDS ORDERED: ZOFRAN PO PRN (23:30)
[2016-12-18] MEDS: ZOSYN 3.375 GM/NS 50 ML IV SCH ×5 (01:25→21:26)
[2016-12-18] MEDS: VANCOMYCIN 1,400 MG in NS 250 ML IV SCH ×2 (01:25→16:10)
[2016-12-18] MEDS: TYLENOL WITH CODEINE #3 PO SCH ×4 (04:08→21:27)
[2016-12-18] MEDS: BENEFIBER PACKET PO SCH (09:41)
[2016-12-18] MEDS: CULTURELLE PO SCH ×2 (09:41→21:27)
[2016-12-18] MEDS: COLACE PO SCH ×2 (09:41→21:16)
[2016-12-18] MEDS: ASPIRIN PO SCH (09:41)
[2016-12-18] MEDS: DILANTIN PO SCH ×3 (09:41→17:53)
[2016-12-18] MEDS: TRILEPTAL PO SCH ×3 (09:42→17:53)
[2016-12-18] MEDS: ZOLOFT PO SCH (09:42)
[2016-12-18] MEDS: PROTONIX PO SCH (09:42)
[2016-12-18] MEDS: LIORESAL PO SCH ×3 (09:43→17:53)
[2016-12-18] MEDS: DITROPAN PO SCH ×3 (09:43→17:53)
[2016-12-18] MEDS: FLAGYL PO SCH ×2 (09:43→21:27)
[2016-12-18] MEDS ORDERED: NS 250 ML ONE (12:13)
--- NOTE | 2016-12-18 12:17 | PROGRESS NOTE ---
DATE: 12/18/2016 SUBJECTIVE: The patient states that her codeine-based pain medications did a better job at suppressing her cough. The patient was sent down for thoracenteses yesterday, but due to her shunt placement, this was not performed. It was likely not going to be necessary. The patient lost her IV line yesterday, and despite a voice order over the telephone and a face-to- face voice order this morning, this has still not been addressed. Dr. Kathleen, I think wisely, did not want to put in a central line, so we have consult the PICC team. OBJECTIVE: Vital Signs: Temperature 98.4, heart rate 73, respiratory rate 20, blood pressure 99/69. General: On physical exam, she is awake, alert, oriented, and conversive. Lungs: The patient's lung sounds are improved. She has better breath sounds. There is no wheezing present. Cardiovascular: Regular. WOUND CARE AND EXAMINATION: Per Dr. Kathleen. ASSESSMENT AND PLAN: 1. For the patient's failure of outpatient treatment, we will continue vancomycin and Zosyn for an institutional-based pneumonia. Her cough does sound better this morning and she is feeling a little bit better. 2. Wound care per Dr. Kathleen. 3. Peripherally inserted central catheter line consultation today. 4. Hopefully, she will be able to return to [facility] postdischarge.
[2016-12-18] MEDS: XANAX PO PRN ×2 (14:25→21:27)
[2016-12-18] MEDS ORDERED: DILAUDID IV ONE (15:51)
[2016-12-18] MEDS: ZOFRAN IV PRN (19:24)
[2016-12-18] MEDS: DUONEB (A & A) INH PRN (20:25)
[2016-12-18] MEDS: MIRALAX PO SCH (21:16)
[2016-12-18] MEDS: DESYREL PO SCH (21:27)
[2016-12-19] MEDS: TESSALON PO PRN (02:42)
[2016-12-19] MEDS: ZOSYN 3.375 GM/NS 50 ML IV SCH ×4 (04:19→20:17)
[2016-12-19] MEDS: TYLENOL WITH CODEINE #3 PO SCH ×4 (04:20→22:17)
[2016-12-19] MEDS: DUONEB (A & A) INH PRN ×3 (08:03→20:57)
--- NOTE | 2016-12-19 09:35 | PROGRESS NOTE ---
DATE: 12/19/2016 SUBJECTIVE: The patient states that she is not short of breath. She feels like she is wheezing in her chest and continues to request aerosol treatments. She has not had any fever. She continues to have pain at the site of her decubitus. We discussed that at the [facility]. Their protocol was to change the Bay catheter every 4 weeks. In the past, we have had to resort to every 2 weeks Bay catheter change through home health in order to prevent her from having recurrent and severe infections. It will be mandatory at discharge that they agree to change her Bay catheter every 2 weeks regardless of the protocol. It would be an endangerment to the patient's well being to not change this every 2 weeks. OBJECTIVE: Vital Signs: 98.3, 68, 20, 98/60. General: The patient is awake, alert, conversive and appropriate. She is in no distress. Lungs: Show crackles in the left base. Right side appears clear. On my examination, she is not wheezing. There is a touch of upper airway noise listening over the trachea and upper chest. Cardiovascular: Regular. Skin: I did not view her decubitus ulcer. ASSESSMENT AND PLAN: 1. The patient will be sent for repeat chest x-ray today. We will draw labs again tomorrow. 2. We will continue vancomycin and Zosyn. 3. The patient's urine has grown out gram-negative darlin, which we do not have identification or sensitivities for yet today. We will make antibiotic adjustments as appropriate. We plan to change the Bay catheter today. 4. Overall the patient is improving, but still requires inpatient care.
--- NOTE | 2016-12-19 10:05 | Diag Imaging Result Document ---
PROCEDURE NAME: CHEST-2 VIEWS - 12/19/2016 FRONTAL AND LATERAL CHEST, TWO VIEWS: COMPARISON: 12/16/2016. FINDINGS: The patient has had extensive surgery to the thoracic and lumbar spine. The lungs are well expanded except for right basilar atelectasis with a right-sided effusion. The appearance is unchanged from the prior exam. A shunt catheter overlies the right side of the chest. The left lung remains clear. IMPRESSION: Stable chest.
[2016-12-19] MEDS: BENEFIBER PACKET PO SCH (11:38)
[2016-12-19] MEDS: ZOLOFT PO SCH (11:39)
[2016-12-19] MEDS: CULTURELLE PO SCH ×2 (11:39→20:18)
[2016-12-19] MEDS: ASPIRIN PO SCH (11:39)
[2016-12-19] MEDS: COLACE PO SCH ×2 (11:40→20:18)
[2016-12-19] MEDS: DITROPAN PO SCH ×3 (11:40→20:17)
[2016-12-19] MEDS: TRILEPTAL PO SCH ×3 (11:40→20:17)
[2016-12-19] MEDS: LIORESAL PO SCH ×3 (11:40→20:17)
[2016-12-19] MEDS: FLAGYL PO SCH ×2 (11:40→20:18)
[2016-12-19] MEDS: DILANTIN PO SCH ×3 (11:40→20:17)
[2016-12-19] MEDS: PROTONIX PO SCH (11:40)
[2016-12-19] MEDS: VANCOMYCIN 1,400 MG in NS 250 ML IV SCH (11:41)
[2016-12-19] MEDS: DESYREL PO SCH (20:18)
[2016-12-19] MEDS: MIRALAX PO SCH (20:18)
[2016-12-20] MEDS: DUONEB (A & A) INH PRN (00:15)
[2016-12-20] MEDS: ZOSYN 3.375 GM/NS 50 ML IV SCH ×2 (04:47→10:36)
[2016-12-20] MEDS: VANCOMYCIN 1,400 MG in NS 250 ML IV SCH (04:47)
[2016-12-20] MEDS: TYLENOL WITH CODEINE #3 PO SCH ×2 (04:47→10:37)
[2016-12-20 06:18] LABS: MANUAL DIFF NEEDED? NO
[2016-12-20 06:23] LABS: BASO% 0.2 % (0.0-0.8); EOS# 0.14 X1000 (0.0-0.7); EOS% 2.6 % (0.0-10.0); HEMATOCRIT 31.2 % (37.0-47.0); HEMOGLOBIN 10.4 g/dL (12.0-16.0); LYMPH# 1.02 X1000 (1.2-3.4); LYMPH% 19.1 % (20.5-51.1); MCH 29.2 PG (27-31); MCHC 33.3 g/dL (33-37); MCV 87.6 FL (81-99); MONO# 0.71 X1000 (0.11-0.59); MONO% 13.3 % (1.7-9.3); MPV 8.8 FL (7.4-10.4); NEUT% 64.8 % (42.2-75.2); PLT 197 X1000 (130-400); RBC 3.56 XMIL (4.2-5.4)
[2016-12-20 06:49] LABS: AGAP 13; BUN 9 mg/dL (8-22); CALCIUM 8.4 mg/dL (8.8-10.2); CHLORIDE 106 mmol/L (98-107); COSMO 285; POTASSIUM 2.9 mmol/L (3.5-5.1); SODIUM 143 mmol/L (136-145); TCO2 24 mmol/L (25-35)
[2016-12-20] MEDS: BENEFIBER PACKET PO SCH (08:19)
[2016-12-20] MEDS: CULTURELLE PO SCH (08:19)
[2016-12-20] MEDS: COLACE PO SCH (08:19)
[2016-12-20] MEDS: ASPIRIN PO SCH (08:19)
[2016-12-20] MEDS: TRILEPTAL PO SCH ×2 (08:20→12:54)
[2016-12-20] MEDS: FLAGYL PO SCH (08:20)
[2016-12-20] MEDS: DILANTIN PO SCH ×2 (08:20→12:54)
[2016-12-20] MEDS: DITROPAN PO SCH ×2 (08:20→12:54)
[2016-12-20] MEDS: ZOLOFT PO SCH (08:21)
[2016-12-20] MEDS: PROTONIX PO SCH (08:21)
[2016-12-20] MEDS: LIORESAL PO SCH ×2 (08:22→12:54)
[2016-12-20 09:13] VITALS: BP 113/64
[2016-12-20] MEDS ORDERED: KLOR-CON PO ONE (09:36)
[2016-12-20] MEDS: ZOFRAN IV PRN (12:36)
--- NOTE | 2016-12-20 20:46 | DISCHARGE SUMMARY ---
ADMISSION DATE: 12/17/2016 DISCHARGE DATE: 12/20/2016 DISCHARGE DIAGNOSES: 1. Pneumonia. 2. Right pleural effusion secondary to ventricular shunt. 3. Cough. 4. Wheezing. 5. Spina bifida with paralysis. 6. Chronic indwelling Bay catheter. 7. Urinary tract infection, catheter related. 8. Decubitus ulcer on left hip. CONSULTATIONS: 1. Nicola Kathleen M.D. 2. Mady Bacon M.D. OPERATIVE PROCEDURES: None. HOSPITAL COURSE: A 41-year-old, white female with spina bifida, paralysis and chronic indwelling Bay had previously been in the hospital in September with severe C. difficile related diarrhea. She was discharged to a rehabilitation facility and then transferred to [facility] for chronic residence. She was transferred back to the hospital on the day of admission with a complaint of cough and wheezing. Initial x-ray findings showed pneumonia with right pleural effusion. The radiologist investigated the pleural effusion with ultrasound and felt that it was appropriate for shunt placement. They did not tap it. The patient was started on broad-spectrum antibiotics to cover facility acquired pneumonia. She was put on vancomycin and Zosyn. She recovered well. She did not run any fever and her cough actually cleared up quite a bit during her time here. By the time of discharge she still had a very slight left-sided expiratory wheeze which cleared greatly with coughing. She never had a productive cough and the intensity and frequency of the cough declined throughout her hospitalization. Due to the patient's complex history she will need to be discharged home on Flagyl 250 twice daily mainly for the prevention of a C. difficile recurrence. She will be placed on Augmentin as her primary modality of treatment for the pneumonia and she is on nitrofurantoin for E. coli urinary tract infection. At discharge it is imperative that the facility change her Bay catheter on an every 2 week basis. Through the long years of our association on an outpatient basis we have discovered that if her catheter is not changed in a 2 week timeframe she inevitably would come down with a urinary tract infection which would result in hospitalization or other similar level of prostration. We also recommended taking nitrofurantoin on a weekly basis as a suppressant. This plan was discussed with the patient and she was in agreement. If she was not transferred back to the home today she would likely lose her bed and it would be a long struggle to get her back in there. Wound care will continue as previously at the facility.
[2016-12-20] MEDS ORDERED: MACRODANTIN PO SCH (21:00)
--- NOTE | 2017-01-23 13:17 | DISCHARGE SUMMARY ---
ADMISSION DATE: 12/17/2016 DISCHARGE DATE: 12/20/2016 DISCHARGE SUMMARY ADDENDUM: Pneumonia cannot be further specified.
== END 2016-12-20 13:49 | DRG 194 ==
LOC: EDBD → ED 20:49 → 3N 12-17 03:11
PROVIDERS: ADMIT Internal Medicine; ATTEND Internal Medicine
DX: J18.9 Pneumonia, unspecified organism (principal); J90 Pleural effusion, not elsewhere classified; L89.229 Pressure ulcer of left hip, unspecified stage; G82.20 Paraplegia, unspecified; Q05.4 Unspecified spina bifida with hydrocephalus; J98.11 Atelectasis; T83.518A Infection and inflammatory reaction due to other urinary catheter, initial encounter; Z87.440 Personal history of urinary (tract) infections; Z79.899 Other long term (current) drug therapy; G40.909 Epilepsy, unspecified, not intractable, without status epilepticus; Z98.2 Presence of cerebrospinal fluid drainage device; Z98.1 Arthrodesis status; Z87.891 Personal history of nicotine dependence; Z99.3 Dependence on wheelchair; Z79.82 Long term (current) use of aspirin; G89.29 Other chronic pain; Y95 Nosocomial condition; B96.20 Unspecified Escherichia coli [E. coli] as the cause of diseases classified elsewhere
CPT/HCPCS: 36569; 71010; 71020; 71260; 80048; 80053; 80185; 81001; 83605; 83880; 85025; 85610; 85730; 87040; 87077; 87088; 87186; 93005; 94640; 94761; 94799; 96365; 96366; 96367; 96375; J1170; J2405; J2543; J3370; J7030; J7050; Q9967

== ENCOUNTER 2019-01-13 05:08 | Day surgery (SDC) ==
[2019-01-13] MEDS ORDERED: [UNRECOGNIZED DRUG - OTHER] ONE (05:56)
[2019-01-13] MEDS ORDERED: PEPCID ONE (05:56)
[2019-01-13] MEDS ORDERED: GENTAMICIN ONE (05:56)
[2019-01-13] MEDS ORDERED: LR 1,000 ML ONE ×2 (05:56→06:39)
[2019-01-13] MEDS ORDERED: FENTANYL ONE ×3 (06:16→08:59)
[2019-01-13] MEDS ORDERED: DIPRIVAN 1% ONE (06:16)
[2019-01-13 06:25] LABS: HEMATOCRIT 37.8 % (37.0-47.0); MCH 28.6 PG (27-31); MCHC 31.7 g/dL (33-37); MPV 9.2 FL (7.4-10.4); RBC 4.2 XMIL (4.2-5.4); WBC 6.78 X1000 (4.8-10.8)
[2019-01-13 06:33] LABS: INR 0.97; PROTIME 13.7 Seconds (11.0-16.0)
[2019-01-13 06:34] LABS: PTT 33.8 Seconds (22.3-41.8)
[2019-01-13] MEDS ORDERED: SENSORCAINE-MPF 0.5%/EPI 1:200,000 ONE (06:34)
[2019-01-13 06:59] LABS: AGAP 14; BUN 11 mg/dL (8-22); CALCIUM 10.6 mg/dL (8.8-10.2); CHLORIDE 100 mmol/L (98-107); COSMO 280; CREATININE 0.6 mg/dL (0.5-0.9); ESTIMATED GFR > 60; GLUCOSE 93 mg/dL (70-104); POTASSIUM 3.6 mmol/L (3.5-5.1); SODIUM 141 mmol/L (136-145); TCO2 27 mmol/L (25-35)
[2019-01-13] MEDS ORDERED: REGLAN ONE (07:43)
[2019-01-13] MEDS ORDERED: PHENERGAN ONE (07:43)
[2019-01-13] MEDS ORDERED: ZEMURON ONE (07:44)
[2019-01-13] MEDS ORDERED: XYLOCAINE-MPF 2% ONE (07:44)
[2019-01-13] MEDS ORDERED: ZOFRAN ONE (07:44)
[2019-01-13] MEDS ORDERED: SODIUM CHLORIDE 0.9% 20 ML ONE (07:44)
[2019-01-13] MEDS ORDERED: DECADRON ONE (07:44)
[2019-01-13] MEDS ORDERED: OFIRMEV 1000 MG/ISOTONIC SOLN 1,000 MG/100 ML BOTTLE ONE (08:17)
[2019-01-13] MEDS ORDERED: NORCURON ONE ×3 (08:21→12:11)
[2019-01-13] MEDS ORDERED: BRIDION ONE (08:47)
[2019-01-13] MEDS ORDERED: NITROGLYCERIN 50 MG/D5W 0 MG/0 ML IV.SOLN ONE (09:44)
--- NOTE | 2019-01-13 14:07 | Diag Imaging Result Doc PS360 ---
EXAM: CHEST-PORTABLE INDICATION: POST OP TECHNIQUE: One view COMPARISON: 10/20/2018 FINDINGS: The lung volumes are very low. There is a small to moderate-sized right pleural effusion with adjacent atelectasis and/or infiltrate at the right lung base. Otherwise, the lungs are grossly clear. The cardiac silhouette is prominent but stable. Central vasculature is unremarkable. IMPRESSION: Low lung volumes and right pleural effusion as described. Electronically signed by Esteban Cool 01/13/2019 2:05 PM
[2019-01-13] MEDS ORDERED: NS 1,000 ML ONE (14:23)
[2019-01-13 14:25] LABS: HEMATOCRIT 34.8 % (37.0-47.0); HEMOGLOBIN 10.6 g/dL (12.0-16.0); MCHC 30.5 g/dL (33-37); MCV 95.3 FL (81-99); RBC 3.65 XMIL (4.2-5.4); RDW 14.5 % (11.5-14.5); WBC 15.13 X1000 (4.8-10.8)
[2019-01-13] MEDS: DILAUDID ONE ×3 (14:27→14:39)
[2019-01-13 15:01] LABS: AGAP 18; BUN 10 mg/dL (8-22); CALCIUM 9.6 mg/dL (8.8-10.2); CHLORIDE 104 mmol/L (98-107); COSMO 274; CREATININE 0.6 mg/dL (0.5-0.9); ESTIMATED GFR > 60; GLUCOSE 118 mg/dL (70-104); POTASSIUM 4.7 mmol/L (3.5-5.1); SODIUM 137 mmol/L (136-145); TCO2 15 mmol/L (25-35)
[2019-01-13] MEDS ORDERED: NS 1,000 ML IV SCH (17:00)
[2019-01-13] MEDS ORDERED: LABETALOL IV PRN (17:00)
[2019-01-13] MEDS ORDERED: OFIRMEV 1000 MG/ISOTONIC SOLN 1,000 MG/100 ML BOTTLE IV PRN (17:00)
[2019-01-13] MEDS ORDERED: ZOFRAN IV PRN (17:00)
[2019-01-13] MEDS ORDERED: OXY IR PO PRN ×2 (17:00)
[2019-01-13] MEDS: DILAUDID IV PRN ×3 (17:11→21:29)
[2019-01-13] MEDS ORDERED: GENTAMICIN IV PER PHARMACY MISC SCH (18:15)
[2019-01-13] MEDS: PHENERGAN IV PRN (18:38)
[2019-01-13] MEDS: SODIUM CHLORIDE 0.9% INJ PRN (18:39)
[2019-01-13] MEDS ORDERED: DELSYM LIQUID PO PRN (18:48)
[2019-01-13] MEDS ORDERED: MAXALT PO PRN (18:48)
[2019-01-13] MEDS ORDERED: TYLENOL PO PRN (18:48)
[2019-01-13] MEDS ORDERED: PHENERGAN PO PRN (18:48)
[2019-01-13] MEDS ORDERED: BENADRYL PO PRN (18:48)
[2019-01-13] MEDS ORDERED: MYLICON PO PRN (18:48)
[2019-01-13] MEDS ORDERED: MILK OF MAGNESIA PO PRN (18:48)
[2019-01-13] MEDS ORDERED: GENTAMICIN IV SCH (20:00)
[2019-01-13] MEDS ORDERED: NS IV SCH (20:00)
[2019-01-13] MEDS: DITROPAN PO SCH (21:29)
[2019-01-13] MEDS: COLACE PO SCH (21:29)
[2019-01-13] MEDS: DILANTIN PO SCH (21:30)
[2019-01-13] MEDS: MELATONIN PO SCH (21:53)
[2019-01-13] MEDS: REGLAN PO SCH (21:53)
[2019-01-13] MEDS: LASIX PO SCH (21:53)
[2019-01-13] MEDS: LIORESAL PO SCH (21:53)
[2019-01-13] MEDS: XANAX PO SCH (21:53)
[2019-01-13] MEDS: TRILEPTAL PO SCH (21:53)
[2019-01-13] MEDS: DESYREL PO SCH (21:53)
[2019-01-13] MEDS: TUMS PO SCH (21:54)
[2019-01-13] MEDS: SEPTRA DS PO SCH (21:54)
[2019-01-13] MEDS: KLOR-CON PO SCH (21:54)
[2019-01-13] MEDS: COLACE LIQUID PO SCH (21:54)
[2019-01-13] MEDS: PERIDEX MT SCH (21:55)
[2019-01-13] MEDS: RESTASIS 0.05% OPH DROPS BOTH EYES SCH (21:55)
[2019-01-13] MEDS: NS 1,000 ML IV SCH (21:56)
[2019-01-14] MEDS: DILAUDID IV PRN ×7 (00:56→21:52)
[2019-01-14] MEDS: PHENERGAN IV PRN ×4 (01:03→14:08)
[2019-01-14] MEDS: NS 1,000 ML IV SCH ×2 (04:08→11:35)
[2019-01-14] MEDS: TYLENOL PO PRN ×2 (04:08→12:57)
[2019-01-14 06:58] LABS: HEMATOCRIT 24.4 % (37.0-47.0); HEMOGLOBIN 7.8 g/dL (12.0-16.0); MCH 29.8 PG (27-31); MCV 93.1 FL (81-99); MPV 9.7 FL (7.4-10.4); RBC 2.62 XMIL (4.2-5.4); RDW 14.6 % (11.5-14.5); WBC 25.93 X1000 (4.8-10.8)
[2019-01-14 07:25] LABS: POTASSIUM 4.6 mmol/L (3.5-5.1)
[2019-01-14] MEDS: FLONASE NAS SCH (07:59)
[2019-01-14] MEDS: PERIDEX MT SCH ×2 (08:00→23:36)
[2019-01-14] MEDS: XANAX PO SCH ×2 (08:00→23:36)
[2019-01-14] MEDS: LIORESAL PO SCH ×4 (08:00→23:35)
[2019-01-14] MEDS: PRILOSEC PO SCH (08:00)
[2019-01-14] MEDS: DILANTIN PO SCH ×3 (08:01→23:48)
[2019-01-14] MEDS: THERA M PLUS PO SCH (08:01)
[2019-01-14] MEDS: CYMBALTA PO SCH (08:01)
[2019-01-14] MEDS: COLACE PO SCH ×2 (08:01→23:34)
[2019-01-14] MEDS: KLOR-CON PO SCH ×2 (08:01→23:36)
[2019-01-14] MEDS: REGLAN PO SCH ×4 (08:02→23:34)
[2019-01-14] MEDS: SEPTRA DS PO SCH ×2 (08:02→23:34)
[2019-01-14] MEDS: DITROPAN PO SCH ×3 (08:02→23:35)
[2019-01-14] MEDS: LASIX PO SCH ×2 (08:02→23:34)
[2019-01-14] MEDS: TRILEPTAL PO SCH ×2 (08:02→23:34)
[2019-01-14] MEDS: COLACE LIQUID PO SCH ×2 (08:07→23:40)
[2019-01-14] MEDS: PATIENT'S OWN MED PO SCH (08:08)
[2019-01-14] MEDS: ZYRTEC PO SCH (08:17)
[2019-01-14] MEDS: SODIUM CHLORIDE 0.9% INJ PRN ×2 (08:17→14:09)
[2019-01-14] MEDS: RESTASIS 0.05% OPH DROPS BOTH EYES SCH ×2 (10:46→23:36)
--- NOTE | 2019-01-14 12:16 | Diag Imaging Result Doc PS360 ---
EXAM: KUB ABDOMEN INDICATION: check for ureteral stent position TECHNIQUE: One view COMPARISON: None. FINDINGS: There are Fernando rods fusing the lumbar and lower thoracic spine. The right ureteral stent is identified. It is in the expected position. However, the right renal silhouette is not clearly seen. There is a large calcified density projecting of the mid left abdomen. Although nonspecific, it is possible that it represents a staghorn calculus in the left kidney. Otherwise, there are nonspecific bowel gas and stool patterns. There is no obstructive bowel pattern. IMPRESSION: 1.Right ureteral stent identified in the expected position. 2.Calcific density on the left that may represent a large left renal staghorn calculus. Electronically signed by Esteban Cool 01/14/2019 12:13 PM
[2019-01-14] MEDS ORDERED: NS 500 ML IV SCH (13:00)
--- NOTE | 2019-01-14 19:35 | PROGRESS NOTE ---
DATE: 01/14/2019 SUBJECTIVE: Ms. Walden reports she has had a decent night overnight. She continues to have abdominal pain on the right and right flank pain. She denies vomiting. She has tolerated clear liquids and sips of fluid. OBJECTIVE: Vital Signs: T 98.9, P 100, BP 100/55. Her urine output was recorded in the amount of 85 mL, but there was approximately 200 mL in a Bay bag at the time of rounds, as well as the patient states she has been voiding into diapers. General: No acute distress. Abdomen: Appropriately tender. Nondistended. No involuntary guarding. No peritoneal signs. Her incisions are clean, dry and intact. Back: Mild right CVA tenderness. Dressing intact. Genitourinary: Suprapubic tube is in place, draining straw-colored urine. PERTINENT LABS: White cell count of 26,000, hematocrit 24.4. Creatinine is 1.0. Her chest x-ray in the recovery room yesterday afternoon showed no evidence of right pneumothorax. She did have a right pleural effusion. ASSESSMENT AND PLAN: A 43-year-old female, status post robotic-assisted laparoscopic exploration with extensive lysis of adhesions, right ureteral catheter placement, percutaneous antegrade right nephrostomy access, right percutaneous nephrostolithotomy of a large staghorn stone over 2 cm. She has had acute blood loss anemia and has been tachycardic and hypotensive. She has been on gentamicin. I was informed by the pharmacist this afternoon that her gentamicin peak level is high given that she has plenty of medication in her system. We will hold gentamicin for now. I discussed with the patient that given her acute blood loss anemia and tachycardia, she would benefit from transfusion of 2 units of packed red blood cells. She voiced understanding. We discussed obtaining a KUB to assess ureteral stent placement and stone burden. She is in agreement. PLAN: 1. Advance her oral pain medications and decrease Dilaudid use. 2. KUB today. 3. Continue IV fluids. 4. We will plan on replacing her suprapubic tube, but she reports the silicon 16-Slovenian tube causes her discomfort and she prefers the latex one as it is softer. 5. Given her acute blood loss anemia, I discussed with the patient that we will hold prophylactic Lovenox. Given her spina bifida and lower extremity habitus, SCD hose are not appropriate for her. cc: Oc Werner MD
[2019-01-14] MEDS: NORCO-10 PO PRN (19:59)
[2019-01-14] MEDS: TUMS PO SCH (23:35)
[2019-01-14] MEDS: MELATONIN PO SCH (23:38)
[2019-01-14] MEDS: DESYREL PO SCH (23:38)
[2019-01-15] MEDS: NS 1,000 ML IV SCH ×2 (01:00→08:26)
[2019-01-15] MEDS: NORCO-10 PO PRN ×4 (03:20→16:55)
[2019-01-15 06:52] LABS: BASO# 0.01 X1000 (0.0-0.2); BASO% 0.1 % (0.0-0.8); EOS# 0.03 X1000 (0.0-0.7); EOS% 0.2 % (0.0-10.0); HEMATOCRIT 30.2 % (37.0-47.0); HEMOGLOBIN 10.1 g/dL (12.0-16.0); IMM GRAN# 0.03 X1000 (0.0-0.04); IMM GRAN% 0.2 % (0.0-0.5); LYMPH# 1.06 X1000 (1.2-3.4); LYMPH% 8.4 % (20.5-51.1); MCH 29.2 PG (27-31); MCHC 33.4 g/dL (33-37); MCV 87.3 FL (81-99); MONO# 1.29 X1000 (0.11-0.59); MONO% 10.2 % (1.7-9.3); MPV 9.7 FL (7.4-10.4); NEUT# 10.22 X1000 (1.4-6.5); NEUT% 80.9 % (42.2-75.2); PLT 163 X1000 (130-400); RBC 3.46 XMIL (4.2-5.4); RDW 14.3 % (11.5-14.5); WBC 12.64 X1000 (4.8-10.8)
[2019-01-15 07:27] LABS: AGAP 12; BUN 9 mg/dL (8-22); CALCIUM 8.4 mg/dL (8.8-10.2); CHLORIDE 107 mmol/L (98-107); COSMO 281; CREATININE 0.6 mg/dL (0.5-0.9); ESTIMATED GFR > 60; GLUCOSE 109 mg/dL (70-104); POTASSIUM 3.3 mmol/L (3.5-5.1); SODIUM 141 mmol/L (136-145); TCO2 22 mmol/L (25-35)
[2019-01-15] MEDS ORDERED: DURAGESIC 50 MICROGM/HR PATCH TD SCH (08:00)
--- NOTE | 2019-01-15 08:34 | DISCHARGE SUMMARY ---
ADMISSION DATE: 01/13/2019 DISCHARGE DATE: 01/15/2019 ADMITTING DIAGNOSES: 1. Chronic urinary tract infections. 2. Bilateral staghorn renal stones. 3. Neurogenic bladder secondary to spina bifida. DISCHARGE DIAGNOSES: 1. Chronic urinary tract infections. 2. Bilateral staghorn renal stones. 3. Neurogenic bladder secondary to spina bifida. 4. Acute blood loss anemia. PROCEDURES: Robotic-assisted laparoscopic exploration with extensive lysis of adhesion, cystoscopy with placement of right ureteral catheter, right antegrade percutaneous access, right percutaneous nephrostolithotomy, cystoscopy with right ureteral stent placement on 01/13/2019. HISTORY OF PRESENT ILLNESS: A 43-year-old female with spina bifida and neurogenic bladder, who has had bilateral staghorn stones and chronic UTIs. She presents for right robotic pyelolithotomy in order to address her right staghorn stone with a plan to address the left side at a later date. HOME MEDICATIONS: 1. Trileptal 300 mg b.i.d. 2. Ditropan 10 mg t.i.d. 3. Dilantin 100 mg t.i.d. 4. Trazodone 75 mg at bedtime. 5. Colace 250 mg b.i.d. 6. Polyethylene glycol every other day. 7. Cranberry 200 mg extract daily. 8. Flonase spray daily. 9. Omeprazole 40 mg daily. 10. Fentanyl patch 50 mcg every 72 hours. 11. Reglan 5 mg 4 times a day. 12. Baclofen 20 mg 4 times a day. 13. Cyclosporine ophthalmic drops both eyes twice a day. 14. Cymbalta 60 mg daily. 15. Lasix 40 mg twice a day. 16. Melatonin 5 mg at bedtime. 17. Multivitamin daily. 18. Potassium chloride 20 mEq twice a day. 19. Zyrtec 10 mg daily. 20. Delsym liquid 60 mg b.i.d. 21. Milk of Magnesia 30 mL as needed daily. 22. Phenergan 12.5 mg 4 times a day. 23. Maxalt 10 mg 3 times a day. 24. Simethicone 125 mg twice a day. 25. Alprazolam 0.25 mg twice a day. 26. TUMS 1000 mg at bedtime. 27. Bactrim b.i.d. 28. Benadryl 25 mg as needed 3 times a day. 29. Tylenol 650 mg every 4 hours as needed. ALLERGIES: Cefadroxil, morphine, nalbuphine, propoxyphene, cephalosporins. HOSPITALIZATION COURSE: Ms. Walden was admitted and underwent the above-stated procedure on 01/13/2019. We originally planned to address her right staghorn stone via robotic pyelolithotomy, but she had extensive abdominal adhesions from previous abdominal surgeries and had to undergo extensive lysis of adhesions. After the adhesions were taken down, she was found to have severely inflamed renal pelvis which precluded me from successfully completing pyelolithotomy, and hence we converted the surgery to right percutaneous nephrostolithotomy. It went well. She did have postoperative blood loss with a drop in hematocrit and tachycardia and hypotension. She reportedly has tachycardia at baseline. She was transfused with 2 units of packed red blood cells. Her labs responded appropriately with hematocrit coming up to 30 up from 24.4. At time of discharge on postop day 2, her blood work was stable; creatinine of 0.6, white cell count of 13,000 and hematocrit 30.2. She was making good urine output via suprapubic tube. She did experience urinary incontinence more so than baseline, and that is attributed to the right ureteral stent. Her wounds were clean and intact with minimal seepage at the supraumbilical site. Her back wound was clean, dry and intact with sutures in place. She will need to be ready for discharge. DISCHARGE CONDITION: Stable. DISPOSITION: To [facility] in [place] where she resides. DISCHARGE MEDICATIONS: 1. Trileptal 300 mg b.i.d. 2. Ditropan 10 mg t.i.d. 3. Dilantin 100 mg t.i.d. 4. Trazodone 75 mg at bedtime. 5. Colace 250 mg twice a day. 6. Polyethylene glycol 17 g every other day. 7. Cranberry extract 200 mg daily. 8. Flonase spray daily. 9. Omeprazole 40 mg daily. 10. Fentanyl patch 50 mcg every 72 hours. 11. Reglan 5 mg 4 times a day. 12. Baclofen 20 mg 4 times a day. 13. Cyclosporine ophthalmic drops to both eyes twice a day. 14. Cymbalta 60 mg daily. 15. Lasix 40 mg b.i.d. 16. Melatonin 5 mg at bedtime. 17. Multivitamin daily. 18. Potassium chloride 20 mEq b.i.d. 19. Zyrtec 10 mg daily. 20. Delsym liquid 60 mg twice a day as needed. 21. Milk of Magnesia 30 mL every morning as needed. 22. Phenergan 12.5 mg every 4 hours as needed. 23. Maxalt 10 mg 3 times a day as needed. 24. Simethicone 125 mg b.i.d. as needed. 25. Alprazolam 0.25 mg twice a day. 26. TUMS 1000 mg at bedtime. 27. Bactrim DS b.i.d. 28. Benadryl 25 mg 3 times a day as needed. 29. Tylenol 650 mg every 4 hours as needed. 30. [place] 10 every 6 hours p.r.n. (a prescription was given for #25). FOLLOWUP: Follow up with Dr. Werner in 2 weeks for cystoscopy and right ureteral stent removal at the office. Overall Ms. Walden has done well from her surgery so far. The plan is for her to continue Bactrim until we address her left side, and keep the ureteral stent in place for 2 weeks. cc: Oc Werner MD
[2019-01-15] MEDS: DILANTIN PO SCH ×2 (08:48→15:17)
[2019-01-15] MEDS: CYMBALTA PO SCH (08:48)
[2019-01-15] MEDS: LASIX PO SCH (08:48)
[2019-01-15] MEDS: ZYRTEC PO SCH (08:49)
[2019-01-15] MEDS: KLOR-CON PO SCH (08:49)
[2019-01-15] MEDS: TRILEPTAL PO SCH (08:49)
[2019-01-15] MEDS: COLACE PO SCH (08:49)
[2019-01-15] MEDS: RESTASIS 0.05% OPH DROPS BOTH EYES SCH (08:50)
[2019-01-15] MEDS: DITROPAN PO SCH ×2 (08:50→15:18)
[2019-01-15] MEDS: THERA M PLUS PO SCH (08:50)
[2019-01-15] MEDS: PRILOSEC PO SCH (08:50)
[2019-01-15] MEDS: SEPTRA DS PO SCH (08:50)
[2019-01-15] MEDS: XANAX PO SCH (08:50)
[2019-01-15] MEDS: REGLAN PO SCH ×2 (08:50→15:18)
[2019-01-15] MEDS: PERIDEX MT SCH (08:51)
[2019-01-15] MEDS: FLONASE NAS SCH (08:51)
[2019-01-15] MEDS: LIORESAL PO SCH ×2 (08:52→15:18)
[2019-01-15] MEDS: COLACE LIQUID PO SCH (08:53)
[2019-01-15] MEDS ORDERED: MIRALAX PO SCH (09:00)
[2019-01-15] MEDS: PHENERGAN PO PRN ×3 (09:04→16:55)
[2019-01-15] MEDS: PATIENT'S OWN MED PO SCH (09:44)
[2019-01-15 15:08] VITALS: BP 138/86
[2019-01-15] MEDS ORDERED: GENTAMICIN 80 MG/NS 80 MG/50 ML IVPB IV SCH (18:00)
--- NOTE | 2019-03-01 09:00 | OPERATIVE NOTE ---
PROCEDURE DATE: 01/13/2019 PREOPERATIVE DIAGNOSES: 1. Right staghorn calculus, over 2.5 cm. 2. Chronic urinary tract infections. 3. History of multiple abdominal surgeries. POSTOPERATIVE DIAGNOSIS: PROCEDURES PERFORMED: 1. Robotic-assisted laparoscopic exploration with extensive lysis of adhesions. 2. Cystoscopy with placement of right ureteral catheter. 3. Right antegrade nephrostomy access percutaneously. 4. Right percutaneous nephrostolithotomy. 5. Placement of 6-Georgian x 22 cm stent. SURGEON: Oc Werner M.D. ANESTHESIA: General endotracheal. INDICATIONS: A 43-year-old female with spina bifida, who has developed chronic UTIs. She has neurogenic bladder managed with suprapubic tube. She underwent imaging, which revealed bilateral staghorn stones. She was counseled on right PCNL versus staged ESWL versus robotic pyelolithotomy, and wants to proceed with the latter. She was counseled because she has had multiple abdominal surgeries and has unfavorable body habitus. FINDINGS: She has a significant amount of intra-abdominal fat and very small space to work with, which made it very difficult to dissect intraperitoneally. She has had extensive adhesions as well as severe perinephric inflammatory rind. I was not able to access the renal pelvis in order to open it up, and hence the procedure had to be converted to PCNL. This was discussed with her mother. She consented to the conversion intraoperatively. DESCRIPTION OF PROCEDURE: After obtaining consent, the patient was brought to the operating room. Perioperative antibiotics and general endotracheal anesthesia were administered. She was placed in supine position, and subsequently modified flank position with the right side up. Please note that she had a suprapubic tube which was kept to gravity drainage. She was prepped and draped in a sterile fashion. A Veress needle connected to a saline-filled syringe was used to gain access to the perineum. I was able to do it in the right upper quadrant after several sticks, and eventually being able to confirm positive drop test, followed by aspiration of fluid in the syringe without evidence of GI contents or blood. We marked out trocar sites in a standard partial nephrectomy fashion. Bovie electrocautery was used to incise skin, followed by introduction of a 12 mm camera trocar. Introduction of the robotic camera revealed significant intra-abdominal adhesions. I was able to place one more trocar in the desired position, and then had to use scissors to take down the adhesions without cautery. I was able to take the adhesions down sharply. She had both mesenteric adhesions as well as small bowel adhesion and large bowel adhesion of the ascending colon. Once all the adhesions were taken down to create a working space, I was able to place the rest of the trocars under direct vision. The robot was undocked, and she was placed in a more exaggerated flank position. It became apparent that even with the pneumoperitoneal pressure of 17, we had very little room to work. Anesthesia attempted to help us, and switched her gas, which did relax the patient further, but I still had a very limited window to work with. Nevertheless, I reflected the ascending colon medially, and was able to identify Gerota's fascia. I was then able to dissect off the lower pole of the kidney. I found the ureter and the gonadal vein, and performed dissection toward the renal hilum. Her right renal vein was visible. We could also see where the ureter was diving into what would appear to be the ureteropelvic junction. At this point, we encountered severe inflammatory rind, and I spent quite a bit of time trying to carefully dissect and access her renal pelvis without getting into the major vessel bleeding. After dissection would not progress as we wanted to, I discussed the situation with her mother on the phone, and we elected to convert to PCNL as I did not deem it to be safe given the severe inflammatory reaction around the renal pelvis and its proximity to the renal vein and artery. Hence, we closed her 12 mm trocar incisions of the camera and multimedia production assistant port with 0 Vicryl suture in a [id number] fashion, followed by irrigation of the wounds, followed by 4-0 Monocryl subcuticular closure, followed by application of Covidien adhesive agent. She was then placed back on the stretcher in a modified frogleg position, and a 21-Georgian rigid cystoscope was used to gain access to the bladder via her urethra. The right ureteral orifice was seen. Inspection of the bladder showed chronic inflammatory changes from the suprapubic tube, but no concerning mucosal lesion. She had moderate trabeculations throughout. There were no stones within the bladder lumen. I then introduced a PTFE wire into the right ureteral orifice, followed by introduction of open-ended ureteral catheter up to the 20 cm maryann. The wire was removed, and urethral Bay catheter was introduced and secured to ureteral catheter with a 0 silk suture. She was then positioned into prone orientation, re-prepped and redraped. Given her spina bifida, she had extremely small space, just a few centimeters to work between her lower ribs and her buttocks. We were fortunate in that her lower pole manuela appeared to be accessible, even with such a small working space. I used the finder needle after making a small stab incision with an 11 blade, and introduced it into what appeared to be lower pole calyx under live fluoroscopy in anterior- posterior orientation, as well as 20-degree angle. I was able to see light-pink urine return. We then introduced the Sensor wire into the outer sheath of the finder needle, and coiled it up in the patient's renal pelvis. This was followed by sequential dilation of 8, 10, 12-Georgian dilators, and followed by introduction of a dual sheath catheter. The inner sheath was removed, and I was able to place PTFE wire along with a Sensor wire into the patient's renal pelvis. We then removed the outer sheath, and placed NephroMax balloon over the PTFE wire, with the tip of the balloon at the entrance of the lower pole calyx. The balloon was then filled with Omnipaque dye to 12 cm of water. Prior to that, the incision was extended, and after the balloon position appeared to be favorable with the tip at the entrance to the lower pole calyx, I was able to place a 30-Georgian sheath over the NephroMax balloon. The balloon was then deflated and retrieved. Rigid nephroscope was then introduced into the sheath, and the stones were visible. They had a greenish sediment consistent with the patient's previous use of Urogesic Blue for spasms. Ultrasound wand was then used to work on the staghorn stone. The stone was quite large. It was definitely over 2.5 cm. There were also several smaller stones filling the calices. We slightly worked on the lower pole calyx, followed by advancement into the renal pelvis, and then upper pole calyx and the interpolar calyx. I felt like we cleared out, by far, majority of the stones, and this was confirmed by fluoroscopy as there were only a couple of pieces remaining. I then switched to a flexible cystoscope, and looked for the remaining fragments. I was able to find a 6 mm fragment, which was secured with 0 Nitinol basket. There was approximately a 10 mm fragment that I spent considerable time looking while performing retrograde pyelogram and delineating the caliceal anatomy. After multiple attempts, and the patient's temperature dropping, we elected to stop as again, over 95% of her stones were addressed. We removed the wires and the 30-Georgian sheath, followed by 3-0 chromic sutures, reapproximating the incision. She was flipped back over, and cystoscope was used to introduce PTFE wire into her right ureteral orifice. A 6-Georgian, 22 cm stent was then placed over the wire in a retrograde fashion, with the proximal coil position confirmed fluoroscopically, and distal coil directly visualized. The string was detached from the stent. I made sure that her suprapubic tube was in the proper position. Her urethral catheter was not reinserted since her bladder is managed with a suprapubic tube. She was extubated and taken to PACU for further recovery. ESTIMATED BLOOD LOSS: 500 mL. COMPLICATIONS: Conversion from attempted robotic pyelolithotomy to PCNL given her unfavorable body habitus and multiple adhesions and perirenal inflammatory rind. DISPOSITION: To PACU with chest x-ray and blood work. cc: Oc Werner MD
== END 2019-01-15 17:42 ==
LOC: OR 05:08 → 4N 05:08 → OR 01-15 17:42
PROVIDERS: ATTEND Urology
CPT/HCPCS: 36430; 71010; 71045; 74000; 74018; 76000; 80048; 80170; 82360; 85025; 85027; 85610; 85730; 86850; 86900; 86901; 86920; 88300; 94761; 94799; A9270; J0131; J1100; J1170; J1580; J2405; J2550; J2765; J3010; J7030; J7120; P9016; Q9966; Q9967; S2900

== ENCOUNTER 2019-02-20 09:39 | Inpatient (IN) ==
[2019-02-20] MEDS ORDERED: NS 1,000 ML IV ONE ×3 (10:02→14:02)
[2019-02-20 10:55] LABS: URINE SOURCE CATH
[2019-02-20 11:01] LABS: BILIRUBIN URINE NEGATIVE (NEGATIVE); BLOOD URINE MODERATE (NEGATIVE); COLOR YELLOW; GLUCOSE URINE NEGATIVE (NEGATIVE); KETONE URINE NEGATIVE (NEGATIVE); LEUKOCYTES URINE LARGE (NEGATIVE); NITRITE URINE NEGATIVE (NEGATIVE); PH URINE 6.5; PROTEIN URINE 30 mg/dL (NEGATIVE); TURBIDITY URINE HAZY (CLEAR); UROBILINOGEN URINE NORMAL (NORMAL)
[2019-02-20 11:02] LABS: UR EPITHELIAL CELLS <10 /HPF (<10); URINE BACTERIA 4+ /HPF; URINE WBC TNTC /HPF (<10)
[2019-02-20 11:13] LABS: BASO# 0.02 X1000 (0.0-0.2); BASO% 0.1 % (0.0-0.8); EOS# 0.01 X1000 (0.0-0.7); EOS% 0.1 % (0.0-10.0); HEMATOCRIT 25.3 % (37.0-47.0); HEMOGLOBIN 8.4 g/dL (12.0-16.0); IMM GRAN# 1.37 X1000 (0.0-0.04); IMM GRAN% 7.6 % (0.0-0.5); LYMPH# 1.02 X1000 (1.2-3.4); LYMPH% 5.6 % (20.5-51.1); MCH 29.7 PG (27-31); MCHC 33.2 g/dL (33-37); MCV 89.4 FL (81-99); MONO# 1.88 X1000 (0.11-0.59); MONO% 10.4 % (1.7-9.3); MPV 10.7 FL (7.4-10.4); NEUT# 13.84 X1000 (1.4-6.5); NEUT% 76.2 % (42.2-75.2); PLT 75 X1000 (130-400); RBC 2.83 XMIL (4.2-5.4); RDW 15.2 % (11.5-14.5); WBC 18.14 X1000 (4.8-10.8)
[2019-02-20 11:20] LABS: INR 1.36; PROTIME 17.8 Seconds (11.0-16.0)
[2019-02-20 11:21] LABS: PTT 41.7 Seconds (22.3-41.8)
--- NOTE | 2019-02-20 11:21 | Diag Imaging Result Doc PS360 ---
CHEST-1 VIEW - 02/20/2019 INDICATION: poss sepsis COMPARISON: 02/18/2019 FINDINGS: Lung volumes are critically low. Stable cardiomegaly and pulmonary vascular congestion. Stable small right basilar pleural effusion. There is improvement in the right basilar atelectasis. No definite infiltrates. IMPRESSION: Improved aeration of the right lung base. Electronically signed by Parag Fiore 02/20/2019 11:19 AM
[2019-02-20 11:26] LABS: BANDS 1 % (0-1); LYMPHS 4 % (21-51); MONO 9 % (1-9); SEGS 80 % (42-75)
[2019-02-20 11:27] LABS: ANISOCYTOSIS 1+; TARGET CELLS 1+
[2019-02-20] MEDS ORDERED: DILAUDID IV ONE (12:02)
[2019-02-20 12:03] LABS: AGAP 16; ALBUMIN 2.9 g/dL (3.5-5.0); ALKALINE PHOSPHATASE 198 U/L (32-104); BUN 24 mg/dL (8-22); CALCIUM 7.9 mg/dL (8.8-10.2); CHLORIDE 108 mmol/L (98-107); COSMO 282; CREATININE 0.8 mg/dL (0.5-0.9); ESTIMATED GFR > 60; GLUCOSE 73 mg/dL (70-104); GOT 127 U/L (10-30); GPT 158 U/L (10-36); POTASSIUM 3.3 mmol/L (3.5-5.1); SODIUM 140 mmol/L (136-145); TCO2 16 mmol/L (25-35); TOTAL BILIRUBIN 2.08 mg/dL (0.20-1.00); TOTAL PROTEIN 5.9 g/dL (6.3-8.3)
[2019-02-20 12:08] LABS: CK PROFILE 541 U/L (24-173)
[2019-02-20 12:27] LABS: CK INDEX 1.5 (0.0-2.5); CK-MB 8.21 ng/mL (0.0-5.0)
--- NOTE | 2019-02-20 14:16 | PROVIDER DOCUMENTATION ---
This chart was entered by Sarah Villalta Scribe, acting as scribe for Srinivas Devries DO. HPI-Fever - General Chief Complaint: Possible Sepsis-D Stated Complaint: sepsis Time Seen by Provider: 02/20/19 09:52 Source: patient, family, EMS, [facility] records Allergies/Adverse Reactions: Patient Allergies Allergy/AdvReac Type Severity Reaction Status Date / Time morphine Allergy Severe ANAPHYLAXIS Verified 02/18/19 06:02 cefadroxil Allergy Unknown Verified 02/18/19 06:02 propoxyphene Allergy SHORTNESS Verified 02/18/19 06:02 OF BREATH propoxyphene napsylate * Allergy ITCHING Verified 02/18/19 06:02 [From Darvocet-N 100] nalbuphine [From Nubain] AdvReac Severe SHORTNESS Verified 02/18/19 06:02 OF BREATH Cephalosporins AdvReac HIVES Verified 02/18/19 06:02 nalbuphine HCl * AdvReac ITCHING Verified 02/18/19 06:02 [From Nubain] Home Medications: Home Medication List Medication Instructions Recorded Confirmed Last Taken Type Oxcarbazepine [Trileptal] 300 mg PO BID 04/29/16 02/20/19 02/18/19 04:00 History Oxybutynin [Ditropan] 10 mg PO TID 04/29/16 02/20/19 02/17/19 21:00 History Phenytoin [Dilantin] 100 mg PO TID 04/29/16 02/20/19 02/18/19 04:00 History Docusate Sodium [Colace] 250 mg PO BID 12/16/16 02/20/19 02/17/19 21:00 History Polyethylene Glycol 3350 17 gm PO EVERY OTHER DAY 12/16/16 02/20/19 02/17/19 09:00 History Trazodone [Desyrel] 75 mg PO QHS 12/16/16 02/20/19 02/17/19 21:00 History Baclofen [Lioresal] 20 mg PO 4XDAY 10/16/18 02/20/19 02/17/19 21:00 History Cranberry Extract [Cranberry] 200 mg PO DAILY 10/16/18 02/20/19 02/17/19 09:00 History Fentanyl 50 mcg TOP Q72H 10/16/18 02/20/19 02/17/19 21:00 History Fluticasone 50 Mcg Nasal [place] 1 spray DAFNE DAILY 10/16/18 02/20/19 02/17/19 09:00 History [Flonase] Metoclopramide [Reglan] 5 mg PO 4XDAY 10/16/18 02/20/19 02/18/19 04:00 History Omeprazole 40 mg PO DAILY 10/16/18 02/20/19 02/18/19 04:00 History Acetaminophen [Tylenol] 650 mg PO Q4H PRN PRN 01/12/19 02/20/19 02/14/19 History Alprazolam 0.25 mg PO BID 01/12/19 02/20/19 02/18/19 04:00 History Calcium Carbonate Chew [Tums] 1,000 mg PO QHS 01/12/19 02/20/19 02/17/19 21:00 History Cetirizine HCl [Zyrtec] 10 mg PO DAILY 01/12/19 02/20/19 02/17/19 09:00 History Cyclosporine 0.05% Oph Drops 1 drp BOTH EYES BID 01/12/19 02/20/19 02/17/19 21:00 History [Restasis 0.05% Oph Drops] Dextromethorphan HBr [Delsym 60 mg PO Q12H PRN 01/12/19 02/20/19 02/15/19 History Liquid] Diphenhydramine [Benadryl] 25 mg PO Q8H PRN 01/12/19 02/20/19 01/12/19 21:00 History Duloxetine [Cymbalta] 60 mg PO DAILY 01/12/19 02/20/19 02/17/19 09:00 History Furosemide [Lasix] 40 mg PO BID 01/12/19 02/20/19 02/17/19 21:00 History Magnesium Hydroxide [Milk of 30 ml PO QAM PRN 01/12/19 02/20/19 01/12/19 21:00 History Magnesia] Melatonin 5 mg PO QHS 01/12/19 02/20/19 02/17/19 21:00 History Multivitamin [Tab-A-Natan] 1 tab PO DAILY 0302/20/19 02/17/19 09:00 History Potassium Chloride 20 meq PO BID 01/12/19 02/20/19 02/17/19 21:00 History Promethazine [Phenergan] 12.5 mg PO Q6H PRN 01/12/19 02/20/19 3 Weeks Ago History ~01/28/19 Rizatriptan [Maxalt] 10 mg PO Q8H PRN 01/12/19 02/20/19 01/12/19 08:00 History Simethicone 125 mg PO BID PRN 01/12/19 02/20/19 02/14/19 History Sulfamethoxazole/Trimethoprim 1 tab PO BID #60 01/15/19 02/20/19 02/17/19 21:00 Rx [Bactrim Ds Tablet] Hydrocodone/Acetaminophen [[place] 1 ea PO Q4H PRN PRN 02/12/19 02/20/19 02/18/19 01:25 History 5-325 Tablet] Hydrocodone/Acetaminophen [[place] 1 ea PO TID PRN #15 tab 02/19/19 02/20/19 Unknown Rx 7.5-325 Tablet] Sulfamethoxazole/Trimethoprim 1 ea PO BID #30 tab 02/19/19 02/20/19 Unknown Rx [Bactrim Ds Tablet] - History of Present Illness-Fever Nature of Presenting Problem: 43 yowf presents to the ed with c/o fever, tachypnea and hypotensive. pt had sx and was sent to rehab yesterday and this am pt has low grade fever and hypotensive and was sent to ed for workup for possible sepsis. pt has hx of spina bifida and kidney stones Fever Severity/Quality: reports: low grade (99.2) Onset/Duration: reports: this morning Timing: reports: still present, constant Severity: reports: moderate Context: reports: other (recent sx fever and hypotensive) Fever Therapy [employer] PERSON: Initiated none Cognitive Baseline: alert, oriented x3 Modifying Factors: improves with: nothing Associated Symptoms: reports: fever/chills, other (tachypnea). denies: back/nec k pain, chest pain, cough, diarrhea, headaches, nausea, shortness of breath, syncope Similar Symptoms Previously?: No Recently seen or treated by another doctor?: No - [place]ow Coma Score Best Eye Response ([place]): (4) open spontaneously Best Verbal Response ([place]): (5) oriented Best Motor Response ([place]): (6) obeys commands [place] Total: 15 Review of Systems - Adult - REVIEW OF SYSTEMS - ADULT Constitutional: reports: see HPI, chills, fever. denies: fatique Eyes: reports: no symptoms reported Ears, Nose, Mouth & Throat: reports: no symptoms reported Cardiovascular: denies: chest pain, palpitations Respiratory: reports: other (tachypnea). denies: cough, shortness of breath, wheezing Gastrointestinal: denies: abdominal pain, diarrhea, nausea, vomiting Genitourinary: reports: no symptoms reported Musculoskeletal: denies: back pain, neck pain Integumentary: reports: no symptoms reported Neurological: denies: dizziness/vertigo, headache/migraines Psychiatric: reports: no symptoms reported Endocrine: reports: no symptoms reported Hematologic/Lymphatic: reports: no symptoms reported Allergic/Immunologic: reports: no symptoms reported All Other Systems: Reviewed and Negative Past History - Adult - PAST MEDICAL HISTORY-ADULT Review of Records: reports: Nursing Assessment Review, Medications Reviewed Major Childhood Illnesses: reports: denies history Cardiovascular: reports: denies history Respiratory: reports: denies history Gastrointestinal: reports: GERD Obstetrical/Gynecological: reports: denies history Genitourinary: reports: kidney stones, chronic UTI's, other (suprapubic cath) Musculoskeletal: reports: chronic pain, orthopedic injury Neurological: reports: Seizures/Epilepsy, other (spina bifida; hydrocephalus) Endocrine/Immune: reports: denies history Other Conditions: reports: other (spna bifida) - PRIOR SURGERIES/PROCEDURES Surgical/Procedure History: reports: hysterectomy, orthopedic (extremity) - IMMUNIZATION STATUS Childhood Immunizations: See Nurse Assessment Flu Vaccine: See Nurse Assessment - FAMILY HISTORY Family History: reviewed, not pertinent - SOCIAL HISTORY Smoking: denies Substance Use: denies Alcohol Use Frequency: never Living Situation: family Physical Exam-General - PHYSICAL EXAM-ADULT Initial Vital Signs Reviewed: Yes - CONSTITUTIONAL General Appearance: alert - EYES Eyes: PERRL/EOMI, pale conjunctivae - HEAD, EARS, NOSE, MOUTH & THROAT HENMT: negative: moist mucous membranes (dry) - NECK Neck: full range of motion, normal inspection - RESPIRATORY Respiratory: chest non-tender, lungs clear, normal breath sounds, increased rate (24) - CARDIOVASCULAR Cardiovascular: normal peripheral pulses, tachycardia (125) - GASTROINTESTINAL (ABDOMEN) Abdominal Exam: normal bowel sounds, non tender, soft, other (rounded abdomen with well healed scar from past sx) - LYMPHATIC Lymphatic: no adenopathy - MUSCULOSKELETAL Back Exam: normal inspection, no CVA tenderness, no vertebral tenderness Extremity: no calf tenderness, normal capillary refill, pelvis stable, other (shortened limbs due to spina bifida). negative: normal gait - SKIN Integumentary: normal color, normal turgor, warm/dry - NEUROLOGIC Neurologic: grossly normal - PSYCHIATRIC Psych/Mental Status: normal mood/affect, normal thought content, normal thought process, oriented x 3 Progress - PLAN OF CARE/RESULTS Progress/Plan/Lab Results: Vital Signs - 8 hr 02/20/19 09:41 02/20/19 09:45 02/20/19 09:46 Temperature 99.2 F 99.9 F H Pulse Rate 125 H 123 H Respiratory Rate 19 26 H Blood Pressure 119/69 102/73 O2 Sat by Pulse Oximetry 100 95 98 02/20/19 09:47 02/20/19 09:50 02/20/19 10:00 Temperature Pulse Rate 123 H 121 H Respiratory Rate 16 17 Blood Pressure 102/73 O2 Sat by Pulse Oximetry 97 97 96 02/20/19 10:10 02/20/19 10:20 02/20/19 10:30 Temperature Pulse Rate 126 H 123 H 121 H Respiratory Rate 15 19 23 Blood Pressure O2 Sat by Pulse Oximetry 99 100 100 02/20/19 10:40 02/20/19 10:50 02/20/19 11:00 Temperature Pulse Rate 122 H 126 H 123 H Respiratory Rate 18 18 18 Blood Pressure O2 Sat by Pulse Oximetry 100 100 100 02/20/19 11:10 02/20/19 11:20 02/20/19 11:30 Temperature Pulse Rate 125 H 125 H 120 H Respiratory Rate 14 14 15 Blood Pressure O2 Sat by Pulse Oximetry 100 100 100 02/20/19 11:40 02/20/19 11:50 02/20/19 11:56 Temperature Pulse Rate 119 H 129 H 127 H Respiratory Rate 15 20 14 Blood Pressure 106/63 O2 Sat by Pulse Oximetry 100 100 100 02/20/19 12:00 02/20/19 12:01 Temperature Pulse Rate 127 H 124 H Respiratory Rate 15 15 Blood Pressure 104/73 O2 Sat by Pulse Oximetry 100 100 Laboratory Results - last 24 hr 02/20/19 02/20/19 02/20/19 10:45 11:00 11:00 WBC 18.14 H RBC 2.83 L Hgb 8.4 L Hct 25.3 L MCV 89.4 MCH 29.7 MCHC 33.2 RDW Std Deviation 15.2 H Plt Count 75 L D MPV 10.7 H Immature Gran % (Auto) 7.6 H Neut % (Auto) 76.2 H Lymph % (Auto) 5.6 L Allen % (Auto) 10.4 H Eos % (Auto) 0.1 Baso % (Auto) 0.1 Immature Gran # (Auto) 1.37 H Neut # (Auto) 13.84 H Lymph # (Auto) 1.02 L Allen # (Auto) 1.88 H Eos # (Auto) 0.01 Baso # (Auto) 0.02 Segmented Neutrophils 80 H Band Neutrophils 1 Lymphocytes 4 L Monocytes 9 Metamyelocytes 1.0 Myelocytes 5.0 Anisocytosis 1+ Target Cells 1+ PT INR PTT (Actin FS) Sodium 140 Potassium 3.3 L Chloride 108 H Carbon Dioxide 16 L Anion Gap 16 BUN 24 H Creatinine 0.8 Estimated GFR/1.73 m2 > 60 BUN/Creatinine Ratio 30 Glucose 73 Calculated Osmolality 282 Calcium 7.9 L Total Bilirubin 2.08 H AST 127 H ALT 158 H Alkaline Phosphatase 198 H Creatine Kinase 541 H Creatine Kinase Index 1.5 CK-MB (CK-2) 8.21 H Troponin T Total Protein 5.9 L Albumin 2.9 L Globulin 3.0 Albumin/Globulin Ratio 1.0 Plasma Lactate Urine Source CATH Urine Color YELLOW Urine Turbidity HAZY Urine pH 6.5 Ur Specific [place] 1.000 Urine Protein 30 A Ur Glucose (Stick) NEGATIVE Ur Ketones (Stick) NEGATIVE Urine Blood MODERATE A Urine Nitrite NEGATIVE Urine Bilirubin NEGATIVE Urobilinogen Dipstick NORMAL Urine Leukocytes LARGE A Urine WBC (Auto) TNTC A Urine RBC (Auto) 10-20 A U Epithel Cells (Auto) <10 Urine Bacteria (Auto) 4+ 02/20/19 02/20/19 02/20/19 11:00 11:00 11:00 WBC RBC Hgb Hct MCV MCH MCHC RDW Std Deviation Plt Count MPV Immature Gran % (Auto) Neut % (Auto) Lymph % (Auto) [place] % (Auto) Eos % (Auto) Baso % (Auto) Immature Gran # (Auto) Neut # (Auto) Lymph # (Auto) [place] # (Auto) Eos # (Auto) Baso # (Auto) Segmented Neutrophils Band Neutrophils Lymphocytes Monocytes Metamyelocytes Myelocytes Anisocytosis Target Cells PT 17.8 H INR 1.36 PTT (Actin FS) 41.7 Sodium Potassium Chloride Carbon Dioxide Anion Gap BUN Creatinine Estimated GFR/1.73 m2 BUN/Creatinine Ratio Glucose Calculated Osmolality Calcium Total Bilirubin AST ALT Alkaline Phosphatase Creatine Kinase Creatine Kinase Index CK-MB (CK-2) Troponin T 0.063 Total Protein Albumin Globulin Albumin/Globulin Ratio Plasma Lactate 1.6 Urine Source Urine Color Urine Turbidity Urine pH Ur Specific [place] Urine Protein Ur Glucose (Stick) Ur Ketones (Stick) Urine Blood Urine Nitrite Urine Bilirubin Urobilinogen Dipstick Urine Leukocytes Urine WBC (Auto) Urine RBC (Auto) U Epithel Cells (Auto) Urine Bacteria (Auto) 02/20/19 13:52 WBC RBC Hgb Hct MCV MCH MCHC RDW Std Deviation Plt Count MPV Immature Gran % (Auto) Neut % (Auto) Lymph % (Auto) [place] % (Auto) Eos % (Auto) Baso % (Auto) Immature Gran # (Auto) Neut # (Auto) Lymph # (Auto) [place] # (Auto) Eos # (Auto) Baso # (Auto) Segmented Neutrophils Band Neutrophils Lymphocytes Monocytes Metamyelocytes Myelocytes Anisocytosis Target Cells PT INR PTT (Actin FS) Sodium Potassium Chloride Carbon Dioxide Anion Gap BUN Creatinine Estimated GFR/1.73 m2 BUN/Creatinine Ratio Glucose Calculated Osmolality Calcium Total Bilirubin AST ALT Alkaline Phosphatase Creatine Kinase Creatine Kinase Index CK-MB (CK-2) Troponin T Total Protein Albumin Globulin Albumin/Globulin Ratio Plasma Lactate 1.3 Urine Source Urine Color Urine Turbidity Urine pH Ur Specific [place] Urine Protein Ur Glucose (Stick) Ur Ketones (Stick) Urine Blood Urine Nitrite Urine Bilirubin Urobilinogen Dipstick Urine Leukocytes Urine WBC (Auto) Urine RBC (Auto) U Epithel Cells (Auto) Urine Bacteria (Auto) Orders Category Date Time Status Cardiac Monitoring DIRECTED Care 02/20/19 09:53 Active IV Insertion ORDERED Care 02/20/19 09:53 Completed Notify MD of + Sepsis Screen NOW Care 02/20/19 09:53 Active Notify Physician As Ordered Care 02/20/19 09:53 Active CHEST-1 VIEW [RAD] Stat Exams 02/20/19 09:53 Completed KUB ABDOMEN [RAD] Stat Exams 02/20/19 12:18 Taken BLOOD CULTURE [BLDCUL] Stat Lab 02/20/19 10:35 Results BNP [PRO B-NATRIURETIC PEPTIDE] Stat Lab 02/20/19 13:52 Received CBC WITH DIFF [HEME] Stat Lab 02/20/19 11:00 Completed CK PROFILE [SP CHEM] Stat Lab 02/20/19 11:00 Completed CK PROFILE [SP CHEM] Stat Lab 02/20/19 13:52 Received COMPREHENSIVE METABOLIC PANEL [CHEM] Stat Lab 02/20/19 11:00 Completed LACTATE, PLASMA [CHEM] Lab 02/20/19 11:00 Completed LACTATE, PLASMA [CHEM] Lab 02/20/19 13:52 Completed LACTATE, PLASMA [CHEM] Lab 02/20/19 16:00 Uncollected PROTIME WITH INR [COAG] Stat Lab 02/20/19 11:00 Completed PTT [COAG] Stat Lab 02/20/19 11:00 Completed TROPONIN T Stat Lab 02/20/19 11:00 Completed TROPONIN T Stat Lab 02/20/19 13:52 Received URINALYSIS W/POSS RFLX CULT [URINALYSIS] Stat Lab 02/20/19 10:45 Completed URINE CULTURE [RM] Routine Lab 02/20/19 11:04 Received 0.9% Sodium Chloride Inj [Ns] 1,000 ml Med 02/20/19 10:02 Discontinued IV 999 mls/hr 0.9% Sodium Chloride Inj [Ns] 1,000 ml Med 02/20/19 10:03 Discontinued IV 999 mls/hr 0.9% Sodium Chloride Inj [Ns] 1,000 ml Med 02/20/19 14:02 Active IV 999 mls/hr Hydromorphone [Dilaudid] Med 02/20/19 12:02 Discontinued 0.5 mg IV NOW ONE Oxygen Device Stat Oth 02/20/19 09:53 Active Result Diagrams: 02/20/19 11:00 02/20/19 11:00 - REASSESSMENT Reassessment #1 Time Reassessed: 11:46 Status: improving Reassessment #2 Time Reassessed: 13:35 Status: unchanged Reassessment #3 Time Reassessed: 14:14 Status: unchanged - XRAY 1 XRAY: Bilateral XRAY Study: Chest Impression: See EMR Report (CHEST-1 VIEW - 02/20/2019 INDICATION: poss sepsis COMPARISON: 02/18/2019 FINDINGS: Lung volumes are critically low. Stable car diomegaly and pulmonary vascular congestion. Stable small right basilar pleural effusion. There is improvement in the right basilar atelectasis. No definite infiltrates. IMPRESSION: Improved aeration of the right lung base. Electronically signed by Parag Fiore 02/20/2019 11:19 AM 02/20/19 1119 Interpreting Physician: Parag Fiore MD Dictated Date/Time: 02/20/19 1118 cc: Srinivas Devries DO; Christopher Mcnamara) - CONSULTS/PCP/HOSPITALIST Notification #1 *Consult/PCP/Hospitalist*: hospitalist dr kwong Time Discussed: 14:13 Consult Disposition: Admit Departure - Departure Date of Disposition Decision: 02/20/19 Time of Disposition Decision: 14:15 DIAGNOSIS: Sepsis Disposition: ADMITTED INPATIENT 09 Certified Medical Emergency: Emergent Condition: Serious Referrals and Follow-Ups: Christopher Mcnamara [Primary Care Provider] - - Critical Care Note This patient required my direct & personal management of CC.: Yes Total Time (mins): 32 Critical Care Statement: This patient required my direct personal management to treat or rule out processes, the absence of which, could potentiallly result in sudden, clinically significant life or limb threatening deterioration. Attestation - Physician/ LORETTA Attestation Patient care was provided by Advanced Practice Provider:: No The physician spent face to face time with patient:: Yes Advanced Practice Provider documentation review:: Supervising physician onsite and consulted in the evaluation and care of this patient. The physician did have a face to face encounter with the patient. This chart was documented by the indicated scribe, (Sarah Villalta Scribe) and accurately reflects the services I performed and decisions made by , Srinivas Devries DO, as attested by the provider's signature.
[2019-02-20] MEDS ORDERED: ZOSYN 3.375 GM in NS 50 ML IV SCH (14:30)
[2019-02-20] MEDS ORDERED: MERREM 1 GM in NS 50 ML IV SCH (14:30)
[2019-02-20] MEDS ORDERED: VANCOMYCIN IV PER PHARMACY MISC SCH ×2 (14:30→18:00)
--- NOTE | 2019-02-20 14:40 | Diag Imaging Result Doc PS360 ---
KUB ABDOMEN - 02/20/2019 INDICATION: abdominal distention COMPARISON: 02/19/2019 FINDINGS: No bowel obstruction or definite free air. Stable left nephroureteral stent in good position. IMPRESSION: No change from prior. Electronically signed by Parag Firoe 02/20/2019 2:38 PM
[2019-02-20 14:46] LABS: CK INDEX 1.5 (0.0-2.5); CK-MB 7.17 ng/mL (0.0-5.0)
[2019-02-20] MEDS ORDERED: MERREM 1 GM in NS 50 ML IV ONE (15:00)
[2019-02-20] MEDS ORDERED: NS 250 ML ONE (15:09)
[2019-02-20 15:17] LABS: MAGNESIUM 1.5 mg/dL (1.5-2.7); PHOSPHORUS 4.2 mg/dL (2.7-4.5)
[2019-02-20 15:21] LABS: IRON SATURATION 11 %; TIBC 171 ug/dL
[2019-02-20 15:23] LABS: AMYLASE 9 U/L (20-200); TOTAL IRON 18 ug/dL (49-151); UNBOUND IRON 153 ug/dL (112-346)
[2019-02-20] MEDS ORDERED: POTASSIUM CHLORIDE 40 MEQ/SWI 40 MEQ/100 ML IVPB IV ONE (15:31)
[2019-02-20] MEDS ORDERED: MAGNESIUM SULFATE 2 GM/S.W.I. 2 GM/50 ML IVPB IV ONE (15:31)
[2019-02-20 15:38] LABS: ACETAMINOPHEN 1.9 ug/mL (10-30); SALICYLATES < 3.00 mg/dL (3-10)
[2019-02-20] MEDS ORDERED: SODIUM CHLORIDE 0.9% INJ SCH (15:45)
[2019-02-20 16:21] LABS: TSH 6.87 uIUmL (0.27-4.20)
[2019-02-20 16:36] LABS: D-DIMER > 20.00 ug/mLFEU (0.0-0.52)
[2019-02-20] MEDS: DILAUDID IV PRN ×2 (16:42→23:31)
[2019-02-20] MEDS: DILANTIN PO SCH (16:49)
[2019-02-20] MEDS: POTASSIUM CHLORIDE 20 MEQ/SWI 20 MEQ/100 ML IVPB IV SCH ×2 (17:00→19:08)
--- NOTE | 2019-02-20 17:33 | HISTORY AND PHYSICAL ---
PRIMARY CARE PHYSICIAN: Christopher Mcnamara UROLOGIST: Dr. Werner CHIEF COMPLAINT: Back pain, hypotension. HISTORY OF PRESENT ILLNESS: Ms. Walden is a 43-year-old female with a complex history of spina bifida, neurogenic bladder, lower extremity paralysis and hydrocephalus with CHIEF LIBRARIAN WORK WITH BLIND shunt, who had staghorn calculus excision by Dr. Werner 2 days ago. She presented to the ER today with lower back pain, hypotension, from [facility] in [place]. She started having back pain yesterday and then today in rehab, she was hypotensive, tachycardic and complaining of abdominal distention and worsening back pain. She does report some mild subjective fever but no nausea or vomiting. No chest pain. She does report fairly significant shortness of breath and upper extremity edema. In the ER, labs revealed a white count of 18,000, and she was also noted to have thrombocytopenia, elevated INR and significant liver function test elevation along with acidosis and urinary tract infection. CXR shows cardiomegaly and pulmonary vascular congestion and small right basilar pleural effusion, abdomen x-ray is unremarkable. She is tachycardic with a low grade fever. Her blood pressure is stable, however, marginally low at around 110 systolic. Lactic acid is within normal limits. Given all of the above, we are going to put her in the ICU for further treatment and evaluation. PAST MEDICAL HISTORY: 1. Recurrent kidney stones with bilateral staghorn calculi. The left was removed 2 days ago with ureteral stent placed by Dr. Werner. 2. Hydrocephalus with CHIEF LIBRARIAN WORK WITH BLIND shunt and history of seizures. 3. Spinal bifida. 4. Lower extremity paralysis. 5. Neurogenic bladder. 6. Anxiety and depression. 7. History of ESBL positive E. coli UTIs. PAST SURGICAL HISTORY: She had a staghorn calculus excision 2 days ago. She has had a CHIEF LIBRARIAN WORK WITH BLIND shunt placed, rods placed in her back, multiple breast biopsies, cholecystectomy, hysterectomy, laser lithotripsy, suprapubic catheter placement. SOCIAL HISTORY: The patient is a former smoker. No current tobacco, alcohol or drug use. She lives at home with her mom. She is disabled. ALLERGIES: Morphine, cefadroxil, propoxyphene, Nubain, cephalosporin. HOME MEDICATIONS: Tylenol 650 mg p.o. every 4 hours as needed, Xanax 0.5 mg p.o. b.i.d., Baclofen 20 mg p.o. 4 times a day, Tums 1000 mg p.o. at bedtime, Zyrtec 10 mg p.o. daily, cranberry 200 mg daily, Restasis eyedrops to both eyes b.i.d., Delsym liquid 60 mg p.o. q.12 hours as needed, Benadryl 25 mg p.o. q.8 hours as needed, Colace 250 mg p.o. b.i.d., Cymbalta 60 mg daily, fentanyl 50 mcg topical patch q.72 hours, Flonase nasal spray daily, Lasix 40 mg p.o. b.i.d., [place] 7.5 as needed for pain, milk of magnesia 30 mL p.o. q.a.m. as needed, melatonin 5 mg p.o. at bedtime, Reglan 5 mg p.o. 4 times a day, multivitamin 1 daily, omeprazole 40 mg daily, Trileptal 300 mg b.i.d., Ditropan 10 mg t.i.d., Dilantin 100 mg p.o. t.i.d., potassium chloride 20 mEq p.o. b.i.d., polyethylene glycol 17 g p.o. every other day, Phenergan 12.5 mg p.o. every 6 hours as needed, Maxalt 10 mg p.o. every 8 hours as needed, simethicone 125 mg p.o. b.i.d. as needed, Bactrim DS 1 p.o. b.i.d., Desyrel 75 mg p.o. at bedtime. REVIEW OF SYSTEMS: A 14-point review of systems was obtained and found to be negative with the exception of the HPI. PHYSICAL EXAMINATION: VITAL SIGNS: Blood pressure is 119/59, heart rate is 132, respiratory rate 17, O2 saturation is 100% on nasal cannula. Temperature is 99.9. GENERAL: This is a chronically ill and obese appearing 43-year-old female lying in hospital bed in no cardiopulmonary distress. NEUROLOGICAL: She is awake and alert. She follows commands. Lower extremities with paralysis. Upper extremities without weakness. HEENT: Head is atraumatic and normocephalic. Pupils are equal, round and reactive to light. Oral mucosa is dry. NECK: Trachea is midline. There is no anterior cervical lymphadenopathy. CHEST: Diminished with fine crackles in both lung bases. CARDIOVASCULAR: Tachycardic rate, regular rhythm. S1 and S2 noted. No appreciable murmurs. GASTROINTESTINAL: Significantly distended and somewhat firm. Bowel sounds are active. She denies any overt pain to palpation, just tightness. EXTREMITIES: Upper extremities with 1+ edema. Lower extremities with trace edema. Pulses 1+ in all 4 extremities. DIAGNOSTIC DATA: Chest x-ray shows critically low lung volumes along with cardiomegaly and pulmonary vascular congestion. Abdomen x-ray shows nephroureteral stent in good position. No obstruction or definite free air. WBC is 18.4, hemoglobin 8.4, hematocrit 25.3, platelet count 75. PT is 17.8. INR is 1.36. Fibrinogen 624. Sodium is 140, potassium 3.3, chloride 108, CO2 is 16, anion gap 16, BUN is 24, creatinine 0.8, glucose 73, calcium 7.9, phosphorus 4.2, magnesium 1.5. Iron is 18, TIBC is 171, percent saturation is 11, unsaturated iron binding is 153, ferritin 486. Total bilirubin is 2.08, AST is 127, ALT is 158, alkaline phosphatase 198. CK is 490. Troponin is 0.061. ProBNP is 3518. Amylase 9, lactic acid 1.3. B12 is 1369, folate 8.9. TSH is 6.87. UA shows UTI. ASSESSMENT AND PLAN: 1. Sepsis. Surgical site on her back is clean, dry and intact. She does have a UTI, and given her h/o ESBL + E.Coli, we will start Merrem. We will check a thorax, abdomen and pelvis CT to evaluate fo any pneumonia and to evaluate her hepatobiliary system given her elevated liver function tests. 2. Acute liver injury/hepatitis. Unclear as to the etiology. She does have abdominal distention. She also has an elevated INR, thrombocytopenia and low protein state, all of which could possibly point toward an abnormal function of the liver. She has had a cholecystectomy in the past and denies alcohol use, hepatitis or history of liver disease. We are going to check an abdomen and pelvis CT, hepatitis level and go from there. LFT elevations could also be from sepsis or even possibly congestive hepatopathy, as she does have cardiomegaly, pulmonary vascular congestion and elevated ProBNP. We will check her liver functions daily. 3. Question of congestive heart failure. The patient has cardiomegaly, pulmonary vascular congestion, as well as upper extremity edema, distended abdomen and liver function test elevation. We will go ahead and order an echo as well as EKG, trend cardiac enzymes. We will be cautious with fluid administration, as she does not have severe sepsis nor is she hypotensive. 4. Normocytic anemia. Iron studies show iron deficiency as well as folate deficiency. We will start her on folate and iron. 5. Recent staghorn calculus excision with stent placement by Dr. Werner. CT of abdomen and pelvis is pending. If there are any issues with the stent or anything else of urologic nature, we will consult him. 6. Spina bifida, neurogenic bladder, hydrocephalus, CHIEF LIBRARIAN WORK WITH BLIND shunt, seizures. We will continue all of her home medicine. This is all stable and chronic. 7. Further recommendations to follow. Dictated by ELLEN Fry for Beryl Slade MD cc: ELLEN Fry MD Sergey S. Ananyev, MD I performed a face to face encounter on the patient. I reviewed all labs and imaging on the patient. I agree with the H&P as dictated. [facility]
[2019-02-20] MEDS: NS 1,000 ML IV SCH (17:40)
--- NOTE | 2019-02-20 17:55 | Diag Imaging Result Doc PS360 ---
CT THORAX/ABD/PELVIS W/CON - 02/20/2019 INDICATION: sepsis, recent staghorn calculus excision COMPARISON: 12/17/2016 FINDINGS: CHEST: There is a right pleural effusion. There is probably a right ventriculopleural shunt. This is stable from prior. There is a left PICC line in good position. No adenopathy. Heart size is normal with no pericardial effusion. There are some minimal linear atelectasis in the lung bases. Otherwise no significant infiltrates. Abdomen pelvis: There is a left nephroureteral stent in good position. There is also a Bay catheter in the urinary bladder. There are couple of tiny stones in the left kidney measuring 5 mm or less. There are several stones in the right kidney measuring up to 11 mm. No significant hydronephrosis or hydroureter. There is significant flank edema mainly at the left abdominal wall and about the pelvis. There are extensive thoracolumbar spinal fusion rods extending all the way to the pelvis. 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 There are numerous old stable deformities of the ribs. No acute bony lesions. IMPRESSION: 1. Right pleural effusion from presumed ventricular pleural shunt. 2. Bilateral nonobstructing renal stones right greater than left. No hydronephrosis. Left nephroureteral stent in good position. This exam was performed using automated exposure control, adjustment of mA or kV according to patient size, and/or use of iterative reconstruction technique Electronically signed by Parag Fiore 02/20/2019 5:53 PM
[2019-02-20] MEDS: FOLIC ACID 1 MG in NS 50 ML IV SCH (19:05)
[2019-02-20] MEDS ORDERED: VANCOMYCIN 2 GM in NS 500 ML IV ONE (20:00)
[2019-02-20] MEDS: TRILEPTAL PO SCH (23:33)
[2019-02-20] MEDS: MERREM 1 GM in NS 50 ML IV SCH (23:33)
[2019-02-21] MEDS: NS 1,000 ML IV SCH ×3 (01:30→17:24)
[2019-02-21] MEDS: DILAUDID IV PRN ×5 (03:14→21:14)
[2019-02-21] MEDS: PROTONIX IV SCH (06:31)
[2019-02-21] MEDS: MERREM 1 GM in NS 50 ML IV SCH ×3 (06:31→23:08)
[2019-02-21 06:32] LABS: BASO# 0.01 X1000 (0.0-0.2); BASO% 0.1 % (0.0-0.8); EOS# 0.01 X1000 (0.0-0.7); EOS% 0.1 % (0.0-10.0); HEMATOCRIT 22.2 % (37.0-47.0); HEMOGLOBIN 7.4 g/dL (12.0-16.0); IMM GRAN# 0.12 X1000 (0.0-0.04); IMM GRAN% 0.7 % (0.0-0.5); LYMPH# 0.91 X1000 (1.2-3.4); LYMPH% 5.7 % (20.5-51.1); MCH 29.7 PG (27-31); MCHC 33.3 g/dL (33-37); MCV 89.2 FL (81-99); MONO% 6.8 % (1.7-9.3); NEUT# 13.94 X1000 (1.4-6.5); NEUT% 86.6 % (42.2-75.2); PLT 83 X1000 (130-400); RBC 2.49 XMIL (4.2-5.4); WBC 16.09 X1000 (4.8-10.8)
[2019-02-21 06:38] LABS: MAGNESIUM 1.9 mg/dL (1.5-2.7); PHOSPHORUS 2.6 mg/dL (2.7-4.5)
[2019-02-21 07:14] LABS: AGAP 13; ALB/GLOB RATIO 0.9; ALBUMIN 2.8 g/dL (3.5-5.0); ALKALINE PHOSPHATASE 195 U/L (32-104); BUN 12 mg/dL (8-22); CALCIUM 7.9 mg/dL (8.8-10.2); CHLORIDE 109 mmol/L (98-107); COSMO 276; CREATININE 0.5 mg/dL (0.5-0.9); ESTIMATED GFR > 60; GLUCOSE 76 mg/dL (70-104); GOT 68 U/L (10-30); GPT 105 U/L (10-36); POTASSIUM 3.2 mmol/L (3.5-5.1); SODIUM 139 mmol/L (136-145); TCO2 17 mmol/L (25-35)
--- NOTE | 2019-02-21 07:49 | Diag Imaging Result Doc PS360 ---
CHEST-PORTABLE - 02/21/2019 INDICATION: dyspnea COMPARISON: 02/20/2019 FINDINGS: There is a left PICC line with the catheter tip at the upper SVC. Stable critically low lung volumes. Stable small to moderate right pleural effusion. No significant infiltrates. Stable cardiomegaly. IMPRESSION: New left PICC line in good position. Otherwise no change from prior. Electronically signed by Parag Fiore 02/21/2019 7:47 AM
[2019-02-21] MEDS ORDERED: POTASSIUM PHOSPHATE 30 MMOL in NS 250 ML IV ONE (08:18)
[2019-02-21] MEDS ORDERED: MUCOMYST 20% INH ONE (08:21)
[2019-02-21] MEDS: DILANTIN PO SCH ×3 (08:57→16:51)
[2019-02-21] MEDS: TRILEPTAL PO SCH ×2 (08:57→21:10)
[2019-02-21] MEDS ORDERED: LASIX IV ONE (09:02)
[2019-02-21] MEDS ORDERED: NS NEB INH SCH (09:15)
[2019-02-21] MEDS ORDERED: DUONEB (A & A) INH SCH (11:30)
[2019-02-21] MEDS: XOPENEX NEB INH SCH ×4 (11:39→21:34)
--- NOTE | 2019-02-21 11:59 | CONSULTATION ---
DATE OF CONSULTATION: 02/21/2019 CONCLUSION: The patient is admitted to the hospital with a urinary tract infection. RECOMMENDATIONS: I agree with treating the patient with vancomycin and meropenem pending culture results. DISCUSSION: The patient has developed back pain and hypotension. Her urinalysis shows white cells and bacteria. The patient's CBC shows a white count of 16,090, a hemoglobin of 7.4, and a platelet count of 83,000. Creatinine is 0.5. GFR is greater than 60. Alkaline phosphatase is 198. CK is 576. Urinalysis shows white cells and bacteria. Chest x-ray shows a right pleural effusion but no infiltrates. CT scan of the thorax, abdomen, and pelvis shows a right pleural effusion, bilateral nonobstructing renal calculi, and a left nephroureteral stent. VOUCHER CLERK HISTORY: The patient has never been . She has had a hysterectomy. REVIEW OF SYSTEMS: Eyes and Ears: She does not have a problem seeing or hearing. Neck: She does not have any pain when she moves her neck. Respiratory: She is not coughing and is not complaining of shortness of breath. Cardiac: No chest pain or palpitations. GI: No nausea, vomiting, or diarrhea. Endocrine: The patient does not have diabetes or hypothyroidism. Neurologic: The patient has spina bifida. She is paralyzed from the waist distally. She also has a neurogenic bladder and she has hydrocephalus for which she has a ventriculoperitoneal shunt. She has a history of seizures also. Integument: No rash PREVIOUS HOSPITALIZATIONS AND OPERATIONS: She has had a hysterectomy, 7 back surgeries, multiple leg surgeries, surgeries for decubitus ulcer, and also surgery for removal of breast lumps. She has had a cholecystectomy, a ventriculoperitoneal shunt placed. MEDICAL DISEASES: Positive for spina bifida, seizure disorder, hyperlipidemia. INFECTIOUS DISEASE HISTORY: Positive for urinary tract infections, pneumonia, and infected sacral decubitus ulcers. FAMILY HISTORY: Positive for diabetes mellitus and cancer. SOCIAL HISTORY: The patient lives in a fci. She stopped smoking cigarettes over 2 years ago. She does not drink alcoholic beverages or abuse drugs. ALLERGIES: She has allergies to morphine, cephalosporin antibiotics, propoxyphene, and Nubain. MEDICATIONS: Taken at home include the following: Alprazolam, baclofen, Zyrtec, dextromethorphan, Colace, Cymbalta, fentanyl, Flonase, Lasix, hydrocodone, melatonin, Reglan, omeprazole, Trileptal, Ditropan, Dilantin, Phenergan, Maxalt, Septra, and trazodone. PHYSICAL EXAMINATION: Vital Signs: Temperature is 100 degrees, pulse 90, respirations 14, blood pressure 115/60. General: This is an ill-appearing, young female. She is in no acute distress. Head, Eyes, Ears, Nose, and Throat: She can hear my spoken words and see near objects. She does not have any white patches on her tongue. Neck: There is no pain when she moves her neck. Lungs: Clear to auscultation. Cardiovascular: Regular heart rate. Abdomen: Soft and nontender. The patient has 2 areas of eschars which occurred with the robot. The patient also has a suprapubic tube in place. The site is not erythematous or purulent. Neurologic: The patient has bilateral leg paralysis. Thank you for the consult. cc: Terry Oates MD
--- NOTE | 2019-02-21 13:47 | PROGRESS NOTE ---
DATE: 02/21/2019 SUBJECTIVE: The patient is sitting up in bed. She complains of generalized aches and pains. OBJECTIVE: Vital signs: Temperature 98.6 degrees, blood pressure 94/66, heart rate 116, respirations 16, O2 saturation 100% on 2 L nasal cannula. General: This is a middle-aged female sitting up in bed in no acute distress. Heart: S1, S2 normal. Tachycardic. Lungs: Coarse breath sounds bilaterally. Diminished breath sounds at the bases. Abdomen: Positive bowel sounds. Soft, nontender, nondistended. Extremities: No edema, no cyanosis. Neuro: The patient is alert and oriented x4. LABS: White blood cell count 16, hemoglobin 7.4, hematocrit 22, platelets 83,000. AST 68, ALT 105, alkaline phosphatase 195, LDH 266, albumin 2.8, acetaminophen level less than 1.2. Chest x-ray shows a small to moderate right pleural effusion. ASSESSMENT AND PLAN: 1. Sepsis. Most likely secondary to the patient's underlying urinary tract infection. Continue with broad-spectrum antibiotics as directed by Dr. Oates. 2. Urinary tract infection. Continue on IV antibiotic therapy. 3. Morbid obesity. Aware. 4. Right pleural effusion. Will give the patient a dose of Lasix today and monitor the chest x- ray closely. 5. Status post left percutaneous nephrostolithotomy with ureteral catheter placement. Will consult with Dr. Werner. The patient is also having a significant amount of leaking around the suprapubic catheter. Will await his recommendations. 6. Spina bifida with hydrocephalus status post ventriculoperitoneal shunt. Aware. 7. Seizure disorder. Continue on Dilantin and Trileptal. 8. Anxiety disorder. Will restart the patient's Xanax. cc: Beryl Slade MD [facility]
--- NOTE | 2019-02-21 14:01 | ECHO REPORT ---
ORDER DATE: 02/20/2019 INDICATIONS: CHF, hypertension, kidney stones. FINDINGS: 1. The right atrium appears normal in size. 2. Trace tricuspid regurgitation. RV systolic pressure of 26. 3. Normal RV size and systolic function. 4. No significant pulmonic insufficiency. 5. Normal left atrial size with a volume index of 22 and a dimension of 3.2. 6. No mitral valve prolapse. Trace mitral regurgitation. No mitral stenosis. 7. Normal LV size, end-diastolic dimension of 4.2. Normal wall thicknesses with a posterior and interventricular septal wall thickness of 0.9 cm each. Normal LV systolic function. Estimated EF is 65% to 70% with normal wall motion. 8. The aortic valve opens well. There is no evidence of stenosis or insufficiency. 9. The aorta appears normal in visualized segments. 10. No pericardial effusion seen. cc: MD Nasim Bill CRNP
[2019-02-21] MEDS: FOLIC ACID 1 MG in NS 50 ML IV SCH (16:51)
[2019-02-21] MEDS ORDERED: MUCOMYST 20% INH SCH (19:30)
[2019-02-21] MEDS: XANAX PO SCH (21:10)
[2019-02-21] MEDS: VANCOMYCIN 1.65 GM in NS 250 ML IV SCH (23:08)
[2019-02-22] MEDS: DILAUDID IV PRN ×7 (01:24→22:34)
[2019-02-22] MEDS: XOPENEX NEB INH SCH ×2 (05:48→11:48)
[2019-02-22] MEDS: PROTONIX IV SCH (06:16)
[2019-02-22] MEDS: MERREM 1 GM in NS 50 ML IV SCH ×2 (06:16→17:55)
[2019-02-22 06:17] LABS: INR 1.06; PROTIME 14.7 Seconds (11.0-16.0)
[2019-02-22 06:18] LABS: PTT 35.9 Seconds (22.3-41.8)
[2019-02-22 06:46] LABS: BASO# 0.01 X1000 (0.0-0.2); BASO% 0.1 % (0.0-0.8); EOS# 0.03 X1000 (0.0-0.7); EOS% 0.3 % (0.0-10.0); HEMATOCRIT 20.8 % (37.0-47.0); HEMOGLOBIN 6.9 g/dL (12.0-16.0); IMM GRAN# 0.04 X1000 (0.0-0.04); IMM GRAN% 0.4 % (0.0-0.5); LYMPH# 0.96 X1000 (1.2-3.4); LYMPH% 9.4 % (20.5-51.1); MCH 29.6 PG (27-31); MCHC 33.2 g/dL (33-37); MCV 89.3 FL (81-99); MONO# 0.54 X1000 (0.11-0.59); MONO% 5.3 % (1.7-9.3); MPV 10.8 FL (7.4-10.4); NEUT# 8.59 X1000 (1.4-6.5); NEUT% 84.5 % (42.2-75.2); PLT 86 X1000 (130-400); RBC 2.33 XMIL (4.2-5.4); RDW 15.4 % (11.5-14.5); WBC 10.17 X1000 (4.8-10.8)
[2019-02-22 07:18] LABS: ALB/GLOB RATIO 1.3; ALBUMIN 3.5 g/dL (3.5-5.0); DIRECT BILIRUBIN 0.1 mg/dL (0.00-0.20); TOTAL BILIRUBIN 0.28 mg/dL (0.20-1.00); TOTAL PROTEIN 6.1 g/dL (6.3-8.3)
[2019-02-22 07:37] LABS: AGAP 9; BUN 4 mg/dL (8-22); CALCIUM 8.2 mg/dL (8.8-10.2); CHLORIDE 110 mmol/L (98-107); COSMO 277; CREATININE 0.4 mg/dL (0.5-0.9); ESTIMATED GFR > 60; GLUCOSE 79 mg/dL (70-104); MAGNESIUM 1.6 mg/dL (1.5-2.7); PHOSPHORUS 2.3 mg/dL (2.7-4.5); POTASSIUM 2.6 mmol/L (3.5-5.1); SODIUM 141 mmol/L (136-145); TCO2 22 mmol/L (25-35)
[2019-02-22] MEDS ORDERED: KLOR-CON PO ONE (07:44)
[2019-02-22] MEDS ORDERED: MAGNESIUM SULFATE 2 GM/S.W.I. 2 GM/50 ML IVPB IV ONE (07:44)
[2019-02-22] MEDS: TRILEPTAL PO SCH ×2 (09:14→20:14)
[2019-02-22] MEDS: DILANTIN PO SCH ×3 (09:14→17:41)
[2019-02-22] MEDS: XANAX PO SCH ×2 (09:14→20:14)
--- NOTE | 2019-02-22 09:56 | EKG Report ---
Test Performed on : 02/20/2019 5:45:29 PM Test Reason : chf? Blood Pressure : / mmHG Vent. Rate : 130 BPM Atrial Rate : 133 BPM P-R Int : 136 ms QRS Dur : 090 ms QT Int : 292 ms P-R-T Axes : 005 038 -36 degrees QTc Int : 429 ms Sinus tachycardia. T wave abnormality, consider inferior ischemia Abnormal ECG When compared with ECG of 15-OCT-2018 16:42, Vent. rate has increased BY 43 BPM Unconfirmed Result
--- NOTE | 2019-02-22 10:10 | Diag Imaging Result Doc PS360 ---
EXAM: CHEST-PORTABLE HISTORY: dyspnea TECHNIQUE: Chest single view COMPARISON: 02/21/2019 FINDINGS: Poor inspiratory effort. Heart remains mildly enlarged. There is a small right pleural effusion which persist with basilar atelectasis. This may be slightly smaller than on the prior study. Vascular distention is less pronounced. No change in the right-sided catheter. There are rods in the thoracic and lumbar spine. IMPRESSION: Mild interval improvement. Electronically signed by Bubba Rivera 02/22/2019 10:08 AM
[2019-02-22] MEDS: ZOFRAN IV PRN ×2 (10:24→17:43)
[2019-02-22 10:50] LABS: HEPATITIS PROFILE ACUTE SEE COMMENTS
[2019-02-22] MEDS ORDERED: NS 250 ML IV PRN (11:34)
[2019-02-22] MEDS ORDERED: NS 250 ML ONE (11:50)
[2019-02-22] MEDS: NS 1,000 ML IV SCH (13:43)
[2019-02-22] MEDS ORDERED: XOPENEX NEB INH PRN (13:56)
--- NOTE | 2019-02-22 14:10 | INFECTIOUS DISEASE PROGRESS NO ---
DATE: 02/22/2019 PRESENT ILLNESS: The patient has a urinary tract infection with gram-negative rods and gram- positive cocci. MEDICATIONS: This is the second day of treatment with the combination of meropenem and vancomycin. PHYSICAL EXAMINATION: Vital Signs: Temperature is 98.9 degrees, pulse 99, respirations 17, blood pressure is 100/54. General: This is a somewhat ill-appearing young female. She is in no acute distress. Head/eyes/ears/nose/throat: She can hear my spoken words and see near objects. There is no drainage from her nose or ears. Neck: There is no stiffness. Lungs: Clear to auscultation. Cardiovascular: Heart rate is regular. Abdomen: Soft and nontender. The patient has a suprapubic tube in place. The site is not erythematous or purulent. 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 The patient also has neurogenic bladder and hydrocephalus for which she has a ventriculoperitoneal shunt. Integument: No rash. LAB AND X-RAY STUDIES: The patient's CBC shows a white count of 10,170, hemoglobin 6.9, platelet count 86,000. Creatinine 0.4. GFR is greater than 60. Chest x-ray shows decreased vascular congestion. ASSESSMENT AND PLAN: Patient has a urinary tract infection. I plan to continue meropenem and vancomycin pending identification of the organisms along with their susceptibility data. COMORBIDITIES: The patient has spina bifida and history of seizure disorder. She also has had previous urinary tract infections, pneumonia and an infected sacral decubitus ulcer. cc: Terry Oates MD
--- NOTE | 2019-02-22 15:53 | PROGRESS NOTE ---
DATE: 02/22/2019 SUBJECTIVE: The patient is resting comfortably in bed. She does complain of generalized aches and pains. No acute events noted overnight. OBJECTIVE: Vital Signs: Temperature 98.9, blood pressure 118/71, heart rate 105, respirations 20, O2 sats 97% on 2 L nasal cannula. Intake 2.8 L; output 1.3 L. General: This is a morbidly obese female lying in bed in no acute distress. Heart: S1, S2 normal. Lungs: Equal air entry bilaterally. No crackles, no rales. Abdomen: Positive bowel sounds. Soft, nontender, nondistended. Extremities: No edema, no cyanosis. No calf tenderness. Neurologic: The patient is alert and oriented x 3. LABS: White blood cell count 10, hemoglobin 6.9, hematocrit 20, platelets 86,000. INR 1. Sodium 141, potassium 2.6, chloride 110, CO2 22, BUN 4, creatinine 0.4, glucose 79, phos 2.3, magnesium 1.6. AST 8, ALT 6, alkaline phosphatase 91, LDH 145. ASSESSMENT AND PLAN: 1. Sepsis. Improved. The patient has an underlying urinary tract infection. Continue with antibiotic therapy as directed by Dr. Oates. 2. Urinary tract infection. The urine culture is growing gram-negative rods and gram-positive cocci. Continue with antibiotic therapy. 3. Thrombocytopenia. Improved. 4. Anemia. Will transfuse 1 unit of packed red blood cells. 5. Folate deficiency. Continue with folic acid replacement. 6. Status post percutaneous nephrostolithotomy with ureteral catheter placement. Aware. Urology has been consulted. 7. Spina bifida with hydrocephalus status post PLANT OPERATOR CONTROL ROOM OPERATOR shunt. Aware. 8. Seizure disorder. Continue on Dilantin and Trileptal. 9. Anxiety disorder. Continue on Xanax. 10. Right pleural effusion. Stable. cc: Beryl Slade MD [facility]
--- NOTE | 2019-02-22 16:41 | CONSULTATION ---
DATE OF CONSULTATION: 02/22/2019 CONSULTING PHYSICIAN: Dr. Terry Oates with Infectious Disease. REASON FOR CONSULTATION: Bladder spasms and leakage around the suprapubic tube catheter. HISTORY OF PRESENT ILLNESS: This is a 43-year-old female with spina bifida who is well known to me. She most recently underwent left percutaneous nephrostolithotomy with left ureteral stent placement on 02/18/2019. She was discharged the following day. She presented on 02/20/2019 with back and abdominal pain, as well as body edema. She was found to be hypotensive and tachycardic with concern for UTI and sepsis. She also had elevated LFTs. In the process, she was given quite a bit of fluids in order to resuscitate her and reports that most of the urine is coming out into her diaper as opposed to suprapubic tube. She has a history of very patulous urethra and her bladder has been managed with suprapubic tube. Of note, she had her right side addressed in January of 2019 and she had a similar leakage problem which was due to spasms from ureteral stent. She reports she has bilateral flank pain. She denies blood in the suprapubic tube. She denies fevers or chills. She reports associated nausea. CT abdomen and pelvis with contrast on 02/20/2019 revealed that her left staghorn stone was treated with exception to 2 small stones, one was 5 mm and the other one approximately 2 mm by my read. PAST MEDICAL HISTORY: Spina bifida, hydrocephalus, seizures, anxiety, depression, urolithiasis, chronic UTIs. PAST SURGICAL HISTORY: PRINT BINDING AND FINISHING WORKER shunt, stabilizing rods in her lumbosacral area, breast biopsies, cholecystectomy, hysterectomy, suprapubic catheter placement, laser lithotripsy, right PCNL, left PCNL. ALLERGIES: Morphine, Nubain, cephalosporins, propoxyphene. HOME MEDICATIONS: Desyrel, Bactrim, Maxalt, Phenergan, polyethylene glycol, potassium chloride, Dilantin, Ditropan, Trileptal, Reglan, omeprazole, melatonin, milk of magnesia, Flonase, Medina, fentanyl, Benadryl, Colace, Cymbalta, Delsym, Restasis, Zyrtec, Tums, baclofen, Xanax, Tylenol. SOCIAL HISTORY: Former smoker. Denies tobacco or illicit drug use. REVIEW OF SYSTEMS: Reviewed and 12 systems negative except as HPI. PHYSICAL EXAMINATION: T 98.9 degrees, P 99, BP 100/54. Her urine output was recorded in the amount of 1300 mL.General: No acute distress. HEENT: Normocephalic, atraumatic. Cardiovascular: Regular rate and rhythm. Pulmonary: Bilateral breath sounds. Abdomen: Protuberant. Nontender to palpation. Back: No CVA tenderness. : Suprapubic tube in place, draining straw-colored urine. Pelvic: Examination was deferred. Extremities: Atrophic. No edema of lower extremities. Bilateral upper extremity edema. Neurologic: Alert and oriented x3. Psychiatric: Appropriate mood and affect. PERTINENT LABS: White cell count is 10,000. Creatinine 0.4. PERTINENT IMAGES: CT abdomen and pelvis per HPI. ASSESSMENT: This is a 43-year-old female who recently had left percutaneous nephrolithotomy and left ureteral stent placement who came in hypotensive and tachycardic with concern for urosepsis. She is currently having significant leakage which what appears to be not around the suprapubic tube as much as through her urethra. The patient states she desires to have her suprapubic tube changed. I have explained to her that she is likely experiencing significant spasms due to the ureteral stent. She still insisted on SP tube exchange. Per her wishes, she was prepped and draped in sterile fashion. Her old 16-Panamanian suprapubic tube was removed. Please note that the female nurse was present at the time of the exchange of the tube. I then cleaned the suprapubic tube site with Betadine and introduced a 16-Panamanian Bay catheter with 8 mL of sterile water placed into the balloon. At that time the patient elicited discomfort and upon examination it appeared that the tip of the catheter and the balloon were coming out of the urethra. Hence, the balloon was deflated and the Bay catheter was repositioned back into the bladder. I was able to palpate the tip of the catheter and the balloon with my index finger due to such a patulous urethra. I then used a 16-Panamanian Bay catheter and we attempted to place 1 via her urethra, but it was obvious due to the patulous urethra that it would be prone to coming out unless we put a large amount of fluid in the balloon, at which point her spasms could be worse. Hence, we aborted that. I irrigated her suprapubic tube with sterile water and there was good return of urine. I have discussed with the patient and her mother that we could increase her Ditropan and when the stent is removed she will likely go back to baseline overactive bladder as she has had before. PLAN: 1. Keep suprapubic tube to gravity drainage. 2. Resume her Ditropan at 10mg tid to help with the spasms. 3. Please call with questions. cc: Oc Werner MD [facility]
[2019-02-22] MEDS: FOLIC ACID 1 MG in NS 50 ML IV SCH (17:41)
[2019-02-22] MEDS: DITROPAN PO SCH (20:15)
[2019-02-22] MEDS: VANCOMYCIN 1.65 GM in NS 250 ML IV SCH (23:55)
[2019-02-23] MEDS: MERREM 1 GM in NS 50 ML IV SCH ×2 (02:28→08:32)
[2019-02-23] MEDS: DILAUDID IV PRN ×7 (02:30→22:13)
[2019-02-23 05:51] LABS: BASO# 0.01 X1000 (0.0-0.2); BASO% 0.2 % (0.0-0.8); EOS# 0.16 X1000 (0.0-0.7); EOS% 2.8 % (0.0-10.0); HEMATOCRIT 26.8 % (37.0-47.0); HEMOGLOBIN 8.8 g/dL (12.0-16.0); IMM GRAN# 0.11 X1000 (0.0-0.04); IMM GRAN% 1.9 % (0.0-0.5); LYMPH# 0.86 X1000 (1.2-3.4); MCH 28.9 PG (27-31); MCHC 32.8 g/dL (33-37); MCV 87.9 FL (81-99); MONO# 0.69 X1000 (0.11-0.59); MPV 10.5 FL (7.4-10.4); NEUT# 3.91 X1000 (1.4-6.5); NEUT% 68.1 % (42.2-75.2); PLT 89 X1000 (130-400); RBC 3.05 XMIL (4.2-5.4); WBC 5.74 X1000 (4.8-10.8)
[2019-02-23 06:08] LABS: PHOSPHORUS 1.7 mg/dL (2.7-4.5)
[2019-02-23] MEDS: PROTONIX IV SCH (06:08)
[2019-02-23 06:32] LABS: AGAP 5; BUN 3 mg/dL (8-22); CALCIUM 8.1 mg/dL (8.8-10.2); CHLORIDE 109 mmol/L (98-107); COSMO 277; CREATININE 0.4 mg/dL (0.5-0.9); ESTIMATED GFR > 60; GLUCOSE 85 mg/dL (70-104); SODIUM 141 mmol/L (136-145); TCO2 27 mmol/L (25-35)
[2019-02-23] MEDS: DITROPAN PO SCH ×3 (08:32→22:13)
[2019-02-23] MEDS: TRILEPTAL PO SCH ×2 (08:32→22:13)
[2019-02-23] MEDS: DILANTIN PO SCH ×6 (08:32→22:15)
[2019-02-23] MEDS: XANAX PO SCH ×2 (08:32→22:13)
[2019-02-23] MEDS ORDERED: AMPICILLIN 1 GM/NS 1 GM/50 ML IVPB IV SCH (11:00)
[2019-02-23] MEDS ORDERED: AMPICILLIN 2 GM/NS 2 GM/100 ML IVPB IV SCH (11:00)
[2019-02-23] MEDS: ZOFRAN IV PRN (11:49)
[2019-02-23] MEDS ORDERED: POTASSIUM PHOSPHATE 40 MEQ in NS 250 ML IV ONE (11:50)
[2019-02-23] MEDS ORDERED: KLOR-CON PO ONE (11:53)
--- NOTE | 2019-02-23 12:13 | PROGRESS NOTE ---
DATE: 02/23/2019 SUBJECTIVE: The patient has no major complaints except she just does not feel well. She has a lot of back pain. OBJECTIVE: Vital Signs: I think are pretty stable. Blood pressure 106/75, heart rate of 96, respiratory rate of 20, temperature 98.2 degrees. Cardiovascular: Regular rate and rhythm. Pulmonary: Bilateral breath sounds clear to auscultation. GI: Soft, nontender, nondistended. She was somewhat firm in her abdomen. LABORATORY DATA: White count 5, hemoglobin and hematocrit 8.8 and 26.8, platelets of 89,000. Potassium is still at 3 with a phos of 1.7. Multiple or polymicrobial urine culture with E. Coli which is ESBL positive although sensitive to ampicillin which is curious, but I guess it is possible, and the Enterococcus faecalis is sensitive to ampicillin. PROBLEM LIST: 1. Sepsis UTI. We will continue antibiotics. I have changed her to ampicillin based on the sensitivities. Since it is ESBL we may have to switch back to Invanz. I will defer to Dr. Oates on that when he evaluates her today. The ampicillin however should cover the enterococcus. I do not think we need the Vanc anymore because the gram-positive cocci is Enterococcus and is sensitive to ampicillin. 2. Thrombocytopenia is stable. 3. Anemia is improved after packed red blood cells with associated folate deficiency which has also been replaced. 4. Status post percutaneous nephrolithotomy nephrostolithotomy with a catheter placement. is following. 5. Seizure disorder is stable. 6. Constipation. We will initiate bowel regimen. ASSESSMENT AND PLAN: Hypokalemia with hypophosphatemia. We will continue treatment. DISPOSITION: I think clinically she has improved. [facility] so may be able to return there in the next day or 2 pending her clinical status. We will continue to follow. cc: Epifanio Chavez MD
[2019-02-23] MEDS: LACTULOSE PO SCH ×2 (13:14→22:13)
[2019-02-23] MEDS ORDERED: MERREM 2 GM in NS 50 ML IV SCH ×4 (15:00)
--- NOTE | 2019-02-23 15:30 | INFECTIOUS DISEASE PROGRESS NO ---
DATE: 02/23/2019 PRESENT ILLNESS: The patient has enterococcal and extended-spectrum beta-lactamase producing Escherichia coli urinary tract infection. MEDICATIONS: The patient has been on a combination of meropenem and vancomycin. PHYSICAL EXAMINATION: Vital Signs: Temperature is 98.1 degrees, pulse 82, respirations 15, blood pressure 129/89. General: This is an ill-appearing, obese young female. She is in no acute distress. Head, Eyes, Ears, Nose, and Throat: She can hear my spoken words and see near objects. She does not have any drainage from the nose or ears. There are no white patches on her tongue. Neck: There is no pain with head movement. Lungs: Clear to auscultation. Cardiovascular: Regular heart rate. Abdomen: Soft and nontender. There is a suprapubic tube that is in place. Extremities: There is bilateral edema in the arms. 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 She can move her arms. She talks in a coherent manner. Integument: No rash noted. LAB AND X-RAY: CBC shows a white count of 6620, hemoglobin 12.7, and platelet count 259,000. Creatinine 0.6, GFR is greater than 60. Blood gases show a pH of 7.41, a PO2 of 70, and a pCO2 of 49. Legionella and pneumococcal antigens were negative. Urine culture grew an extended-spectrum beta-lactamase producing Escherichia coli and an Enterococcus. ASSESSMENT AND PLAN: I plan to continue with meropenem to treat the urinary tract infection, and vancomycin has been discontinued. COMORBIDITIES: The patient has spina bifida and is paralyzed from the waist down. She has a history of seizures. She has previously had urinary tract infections, pneumonia, and an infected sacral decubitus ulcer. cc: Terry Oates MD
[2019-02-23] MEDS: FOLIC ACID 1 MG in NS 50 ML IV SCH (17:47)
[2019-02-23] MEDS: MERREM 2 GM in NS 50 ML IV SCH (18:03)
[2019-02-23] MEDS ORDERED: BENADRYL PO ONE (23:49)
[2019-02-24] MEDS: MERREM 2 GM in NS 50 ML IV SCH ×4 (00:49→22:45)
[2019-02-24] MEDS: DILAUDID IV PRN ×6 (01:01→21:15)
[2019-02-24] MEDS: PROTONIX IV SCH (06:25)
[2019-02-24] MEDS: LACTULOSE PO SCH ×2 (08:41→22:46)
[2019-02-24] MEDS: DILANTIN PO SCH ×3 (08:43→22:44)
[2019-02-24] MEDS: XANAX PO SCH ×2 (08:44→22:45)
[2019-02-24] MEDS: TRILEPTAL PO SCH ×2 (08:44→22:44)
[2019-02-24] MEDS: DITROPAN PO SCH ×3 (08:44→22:44)
[2019-02-24 08:53] LABS: BASO# 0.02 X1000 (0.0-0.2); BASO% 0.4 % (0.0-0.8); EOS# 0.12 X1000 (0.0-0.7); EOS% 2.7 % (0.0-10.0); HEMATOCRIT 28.5 % (37.0-47.0); HEMOGLOBIN 9.3 g/dL (12.0-16.0); IMM GRAN# 0.25 X1000 (0.0-0.04); IMM GRAN% 5.6 % (0.0-0.5); LYMPH# 0.71 X1000 (1.2-3.4); LYMPH% 15.9 % (20.5-51.1); MCH 28.9 PG (27-31); MCHC 32.6 g/dL (33-37); MCV 88.5 FL (81-99); MONO# 0.68 X1000 (0.11-0.59); MONO% 15.2 % (1.7-9.3); MPV 10.1 FL (7.4-10.4); NEUT# 2.69 X1000 (1.4-6.5); NEUT% 60.2 % (42.2-75.2); PLT 142 X1000 (130-400); RBC 3.22 XMIL (4.2-5.4); RDW 16.2 % (11.5-14.5); WBC 4.47 X1000 (4.8-10.8)
[2019-02-24 09:03] LABS: MAGNESIUM 1.9 mg/dL (1.5-2.7); PHOSPHORUS 1.9 mg/dL (2.7-4.5)
[2019-02-24 09:08] LABS: AGAP 10; BUN 2 mg/dL (8-22); CALCIUM 8.7 mg/dL (8.8-10.2); CHLORIDE 108 mmol/L (98-107); COSMO 281; CREATININE 0.2 mg/dL (0.5-0.9); ESTIMATED GFR > 60; GLUCOSE 99 mg/dL (70-104); POTASSIUM 3.1 mmol/L (3.5-5.1); SODIUM 143 mmol/L (136-145); TCO2 25 mmol/L (25-35)
[2019-02-24] MEDS ORDERED: POTASSIUM PHOSPHATE 40 MEQ in NS 250 ML IV ONE (10:02)
[2019-02-24 10:34] LABS: BANDS 8 % (0-1); EOS 8 % (1-10); LYMPHS 14 % (21-51); MONO 18 % (1-9); NRBC 1 % (0-0); SEGS 44 % (42-75)
--- NOTE | 2019-02-24 13:59 | INFECTIOUS DISEASE PROGRESS NO ---
DATE: 02/24/2019 PRESENT ILLNESS: The patient has an enterococcal and extended spectrum beta lactamase producing Escherichia coli urinary tract infection. MEDICATIONS: The patient is on meropenem as a single agent. PHYSICAL EXAMINATION: Vital Signs: Temperature is 99.2 degrees, pulse 95, respirations 22, blood pressure 130/51. General: This is an ill-appearing, obese and edematous young female. She is in no acute distress. She has complained that she has not recently had a bowel movement. Head/eyes/ears/nose/throat: She can hear my spoken words and see near objects. She does not have any white patches on her tongue. Neck: She does not have any pain when she moves her neck. Lungs: Clear to auscultation. Cardiovascular: Heart rate is regular. Abdomen: Soft and nontender. The patient has a suprapubic tube in place. The tube site is not erythematous or purulent. Extremities: The patient has bilateral edema in the arms. The patient has a PICC in her left arm. The site is not erythematous or purulent. 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 She can move her arms. There is no tremor. Integument: No rash noted. LAB AND X-RAY: CBC for today shows a white count of 4470, hemoglobin is 9.3, and platelet count is a 142,000. Creatinine is 0.2. GFR is greater than 60. Urine grew extended spectrum beta lactamase producing E coli and an Enterococcus. ASSESSMENT AND PLAN: The patient has urinary tract infection. I have written orders for the patient when she goes to the retirement that she lives in for the following: Meropenem 2 g IV every 8 hours for 2 weeks. I have also ordered a CBC with a differential and a creatinine to be drawn every Friday for 2 weeks also. Finally, the final order was to remove the patient's PICC which is in her left arm after the last dose of meropenem. COMORBIDITIES: She has spina bifida and she is paralyzed from the waist down. She previously has had urinary tract infections, pneumonia and an infected sacral decubitus. cc: Terry Oates MD
[2019-02-24] MEDS: FOLIC ACID 1 MG in NS 50 ML IV SCH (17:49)
--- NOTE | 2019-02-24 23:30 | PROGRESS NOTE ---
DATE: 02/25/2019 SUBJECTIVE: The patient has no major complaints except swelling. OBJECTIVE: Vital Signs: Blood pressure 112/64, heart rate 97, respiratory rate 18, temperature 98.9 degrees. Cardiovascular: Regular rate and rhythm. Pulmonary: Bilateral breath sounds. Clear to auscultation. Gastrointestinal: Soft, nontender, nondistended. Bowel sounds are positive. She did have nonpitting edema. White count is 4, hemoglobin and hematocrit 9 and 28, platelets 142,000. Potassium 3.1, phosphorus 1.9. PROBLEM LIST: 1. Urinary tract infection with sepsis and extended spectrum beta-lactamase positivity with Enterococcus and Escherichia coli. We will continue empiric antibiotics and follow. Ampicillin is reported as sensitive, but she has ESBL so we felt that this likely if not error then at least it will not be of sexual so she is currently on antibiotics per Infectious Disease. 2. Thrombocytopenia has improved. 3. Anemia. We will continue to follow. She is folate deficient. Hemoglobin and hematocrit are stable. 4. Status post percutaneous nephrostolithotomy per Urology, which they are following closely. 5. Seizure disorder, is stable on current medications. DISPOSITION: Anticipate discharge to rehab. We will need to establish if they can treat her with meropenem and we will follow closely. We will continue to monitor. cc: Epifanio Chavez MD
[2019-02-24] MEDS: LASIX IV SCH (23:59)
[2019-02-25] MEDS: DILAUDID IV PRN ×5 (00:07→19:40)
[2019-02-25] MEDS: MERREM 2 GM in NS 50 ML IV SCH ×3 (06:30→15:56)
[2019-02-25] MEDS ORDERED: PRILOSEC PO SCH (07:00)
[2019-02-25 07:24] LABS: BASO# 0.02 X1000 (0.0-0.2); BASO% 0.3 % (0.0-0.8); EOS# 0.25 X1000 (0.0-0.7); HEMATOCRIT 30.1 % (37.0-47.0); HEMOGLOBIN 9.9 g/dL (12.0-16.0); IMM GRAN% 3.2 % (0.0-0.5); LYMPH# 1.02 X1000 (1.2-3.4); LYMPH% 16.4 % (20.5-51.1); MCH 29.2 PG (27-31); MCHC 32.9 g/dL (33-37); MCV 88.8 FL (81-99); MONO# 0.96 X1000 (0.11-0.59); MONO% 15.5 % (1.7-9.3); MPV 9.9 FL (7.4-10.4); NEUT# 3.76 X1000 (1.4-6.5); NEUT% 60.6 % (42.2-75.2); PLT 202 X1000 (130-400); RBC 3.39 XMIL (4.2-5.4); RDW 16.7 % (11.5-14.5); WBC 6.21 X1000 (4.8-10.8)
[2019-02-25 07:43] LABS: AGAP 11; BUN 3 mg/dL (8-22); CALCIUM 8.5 mg/dL (8.8-10.2); CHLORIDE 102 mmol/L (98-107); COSMO 280; CREATININE 0.3 mg/dL (0.5-0.9); ESTIMATED GFR > 60; GLUCOSE 96 mg/dL (70-104); MAGNESIUM 1.9 mg/dL (1.5-2.7); POTASSIUM 2.8 mmol/L (3.5-5.1); SODIUM 142 mmol/L (136-145); TCO2 29 mmol/L (25-35)
[2019-02-25] MEDS: DITROPAN PO SCH ×2 (08:07→15:55)
[2019-02-25] MEDS: TRILEPTAL PO SCH (08:07)
[2019-02-25] MEDS: XANAX PO SCH (08:08)
[2019-02-25] MEDS: DILANTIN PO SCH ×2 (08:08→15:56)
[2019-02-25] MEDS: LACTULOSE PO SCH (08:08)
[2019-02-25] MEDS: LASIX IV SCH ×2 (08:08→12:08)
[2019-02-25] MEDS ORDERED: FOLIC ACID PO SCH (09:00)
[2019-02-25] MEDS ORDERED: POTASSIUM CHLORIDE 40 MEQ/SWI 40 MEQ/100 ML IVPB IV ONE (10:56)
[2019-02-25] MEDS ORDERED: KLOR-CON PO ONE (10:56)
--- NOTE | 2019-02-25 16:35 | DISCHARGE SUMMARY ---
ADMISSION DATE: 02/20/2019 DISCHARGE DATE: DISCHARGE DIAGNOSES: 1. Enterococcus urinary tract infection. 2. Escherichia coli urinary tract infection, extended-spectrum beta-lactamase. 3. Thrombocytopenia. 4. Anemia. 5. Spina bifida with chronic urinary retention. CONSULTATIONS: Dr. Oates and Dr. Werner. PROCEDURE: PICC line placement. HOSPITAL COURSE: Briefly this is a 43-year-old female long term patient. She has bilateral staghorn calculi. She has spina bifida. She has hydrocephalus and MOTORCYCLE SERVICE TECHNICIAN shunt, but she is functional as far as her mental status. She is very functional. She has history of frequent UTIs. She came in with a fever, white count of 18,000, low blood pressure. She had early criteria for sepsis, but certainly not septic shock. She also had some acute liver injury with mild elevation in her liver function tests. Urine culture was polymicrobial, but grew out Enterococcus, which was fortunately sensitive to ampicillin and vancomycin. Her E coli, though, was an ESBL, only sensitive to imipenem. There was report that it was sensitive to ampicillin, but that was not possible, I guess, or highly unlikely. In any case, ID was consulted. She was placed on vancomycin and meropenem. Culture results were eventually obtained. Her blood pressure improved. She was anemic. She got transfused 1 unit of packed red blood cells. Her hemoglobin and hematocrit at the lowest were 6.9 and 20, but overall, she improved. She did have some fluid retention which was treated with Lasix. She did have a nephrolithotomy and nephrostolithotomy with catheter placement per Dr. Werner in the past and he just recommended treatment of current UTI. She had her suprapubic catheter changed per Dr. Werner. In any case, it was felt that she would need IV antibiotics because of her ESBL UTI, and she was treated with meropenem per Dr. Oates' recommendation, which would be 2 g IV q.8 h. for 2 weeks. PICC line had already been in place. Arrangements were made to discharge her on the . Now, she was somewhat hypokalemic. She had diuretic, and she was also kind of persistently hypokalemic, 2.8 at time of discharge, but we gave her 40 of p.o. and 40 IV. DISCHARGE CONDITION: Stable. DISCHARGE MEDICATIONS: As follows: Trazodone 75 at bedtime, melatonin 5 at bedtime, Xanax 0.25 b.i.d., Benadryl, Colace, cranberry, Cymbalta 60 daily, phenytoin 100 t.i.d., Ditropan 10 t.i.d., fluticasone daily, Lasix 40 b.i.d., baclofen 20 q.i.d., Maxalt p.r.n., milk of magnesia 30 daily, Blackwell 5 q.4 h. p.r.n. pain. Prilosec 40 daily, Phenergan p.r.n., MiraLAX, Klor- Con 20 b.i.d., Reglan 5 q.i.d., Restasis both eyes daily, simethicone 125 b.i.d., multivitamin, Trileptal 300 b.i.d., Tylenol, Zyrtec, fentanyl patch 50 q.72 h., Merrem 2 g IV q.8 h. for 2 weeks, folic acid 1 mg daily 32 minute discharge time Pt needs followup with PCP and Dr Oates in 2 weeks. ENSURE that you check potassium level within 1 week. cc: Epifanio Chavez MD [facility]
[2019-02-25 16:52] VITALS: BP 110/64
== END 2019-02-25 19:00 | DRG 871 ==
LOC: SUPCPDRO → ED 09:39 → SUATTDRO 15:11 → EDIPHOLD 15:11 → ICU 20:27 → 4N 02-23 14:55
PROVIDERS: ATTEND Internal Medicine
CPT/HCPCS: 36430; 36569; 71010; 71045; 71260; 74000; 74018; 74177; 76000; 80048; 80053; 80074; 80076; 80185; 80196; 80307; 80324; 80329; 81001; 82003; 82150; 82550; 82553; 82607; 82728; 82746; 83540; 83550; 83605; 83615; 83690; 83735; 83880; 84100; 84443; 84484; 85025; 85027; 85379; 85384; 85610; 85730; 86850; 86900; 86901; 86920; 87040; 87077; 87088; 87186; 93005; 93306; 94640; 94761; 94799; 96365; 96366; 96367; 96375; 96376; 99285; A9270; C8929; C9113; G0378; G0379; G0480; G6038; G6039; J0131; J0290; J1100; J1170; J1580; J1940; J1956; J2185; J2405; J3010; J3370; J3475; J3480; J7030; J7040; J7050; J7120; P9016; Q9957; Q9966; Q9967; S0164